=== PATIENT | male | born 1945 | race Caucasian/White ===

== ENCOUNTER 2016-03-25 07:24 | Outpatient (CLI) | payer MEDICARE, BC ==
[~2016-03-25] VITALS: Ht 172.7 cm; Wt 84.1 kg
--- NOTE | ~2016-03-25 | HEMODYNAMI ---
PATIENT:LUCRECIA CAPELLAN MEDICAL RECORD: [id number] : 41 LOCATION:D.CAT ADMISSION DATE: 03/25/16 Generatedon:03/25/201611:56 Patient name: LUCRECIA CAPELLAN Patient #: [id number] SSN: D OB: 1945 Date of study: 03/25/2016 Page: Of Hemodynamic Procedure Report Patient Data Patient Demographics Procedure consent was obtained First Name: LUCRECIA Gender: Male Last Name: MARILIA : 1945 Middle Initial: R Age: 70 year(s) Patient #: [id number] Race: Additional ID: [id number] Contact details Address: [address] [place] [address] State: [place] City: [place] Zip code: [address] Past Medical History Allergies Allergen Reaction Date Comments Reported Iodine 10/19/2015 Other allergy 03/25/2016 Iodine Admission Admission Data Admission Date: 03/25/2016 Admission Time: 7:24 Admit Source: Other Insurance Payor: Private health insurance, Medicare Height (in.): 68 BSA: 1.98 (m2) Height (cm.): 172.72 BMI: 28.13 (kg/m2) Weight (lbs.): 185 Weight (kg.): 83.91 Medications upon Admission Medications Dosage Times Administered Last Remarks per Delivery Day Date and Time Aspirin Yes 03/25/2016 (any) 0:00 Prasugrel Yes 03/25/2016 0:00 Lab Results Lab Result Date: 03/25/2016 Lab Result Time: 8:20 Biochemistry Name Units Result Min Max Creatinine mg/dl 1.7 --(----)-* 0.6 1.3 CBC Name Units Result Min Max Hematocrit % 46.1 --(-*--)-- 42 54 Procedure Procedure Types Cath Procedure Diagnostic Procedure [facility] w/Coronaries FFR/IVUS Intra-Coronary IVUS Initial PCI Procedure Coronary Stent Initial Procedure Description Procedure Date Procedure Date: 03/25/2016 Procedure Start Time: 11:30 Procedure End Time: 11:55 Procedure Staff Name Function Stone Beltre MD Performing Physician Bill Pearce RT Scrub Cal Fregoso RN Fish Housekeeper Kevin Steele RT Monitor Steve Parra RT Monitor Terrie Wallis RN Nurse Procedure Data Cath Procedure Fluoroscopy Diagnostic fluoroscopy Total fluoroscopy dose: 686 dose: 686 mGy mGy Contrast Material Contrast Material Type Amount (ml) Isovue 370 0 Isovue 300 139 Entry Location Entry Primary Successful Side Size Upsize Upsize Entry Closure Shearer ccessful Closure Location (Fr) 1 (Fr) 2 (Fr) Remarks Device Remarks Radial Right 6 Fr Mechanical artery Short Compression Estimated blood loss: 10 ml Diagnostic catheters Device Type Used For End Catheter Placement Terumo 5Fr [place] 110cm Procedure catheter Cordis Infinity 5Fr AR 2 Procedure MOD catheter Cordis Infinity 5Fr [place] 1 Procedure catheter Procedure Medications Medication Administration Route Dosage Oxygen NC 2 l/min Benadryl I.V. 50 mg Lidocaine 2% added to field 20 Heparin Flush Bag added to field 2 bags (1000units/500ml NS) 0.9% NaCl I.V. 100 ml/hr Versed I.V. 1 mg Fentanyl I.V. 50 mcg Radial Cocktail I.A. 1 syringe (Verapomil 2mg/Nitro 400mcg/Heparin 1500units) Versed I.V. 1 mg Fentanyl I.V. 50 mcg Heparin Bolus I.V. 5000 units Versed I.V. 1 mg Fentanyl I.V. 50 mcg Versed I.V. 1 mg Fentanyl I.V. 50 mcg Hemodynamics Rest BSA: 1.98 (m2) O2 Consumption: Estimated: 248.88 (ml/min) O2 Consumption indexed : Estimated:125.7 (ml/min/m) Heart Rate: 97 (bpm) Snapshots Pre Cath Intra NCS Post Cath Vital Signs Time Heart Resp SPO2 etCO2 CL0ypei NIBP (mmHg) Rhythm Pain Sedatio n Rate (ipm) (%) (mmHg) (mmHg) Status Level (bpm) 11:16:34 103 19 95 0 0 149/94(117) NSR 0 (11) 10(A) , No pain 11:20:48 105 17 98 0 0 165/101(136) NSR 0 (11) 10(A) , No pain 11:25:04 98 18 99 0 0 160/89(128) NSR 0 (11) 10(A) , No pain 11:29:18 94 18 98 0 0 150/86(106) NSR 0 (11) 10(A) , No pain 11:34:34 101 16 96 0 0 94/65(87) NSR 0 (11) 9(A) , No pain 11:39:23 94 17 95 0 0 107/64(83) NSR 0 (11) 9(A) , No pain 11:43:30 90 18 96 0 0 107/63(82) NSR 0 (11) 9(A) , No pain 11:47:36 88 18 95 0 0 113/67(94) NSR 0 (11) 9(A) , No pain 11:51:44 87 17 97 0 0 121/73(82) NSR 0 (11) 10(A) , No pain Medications Time Medication Route Dose Verified Delivered Reason Note s Effectiveness by by 11:18:50 Oxygen NC 2 l/min Stone Ritter used for Patt Beltre MD procedure 11:19:02 Benadryl I.V. 50 mg Stone Ritter used for Patt Beltre MD procedure 11:19:11 Lidocaine 2% added 20ml Stone Stone for local to vial Patt Beltre MD anesthetic field 11:19:19 Heparin Flush added 2 bags Stone Ritter used for Bag to Patt Beltre MD procedure (1000units/500ml field NS) 11:19:28 0.9% NaCl I.V. 100 Stone Ritter Per physician ml/hr Patt Beltre MD 11:30:06 Versed I.V. 1 mg Stone Ritter for sedation Patt Beltre MD 11:30:13 Fentanyl I.V. 50 mcg Stone Ritter for sedation Patt Beltre MD 11:32:24 Radial Cocktail I.A. 1 Stone Ritter for (Verapomil syringe Patt Beltre MD vasodilation 2mg/Nitro 400mcg/Heparin 1500units) 11:33:27 Versed I.V. 1 mg Stone Falcon for sedation Patt Wallis RN 11:33:30 Fentanyl I.V. 50 mcg Stone Falcon for sedation Tauth MD Wallis RN 11:36:04 Heparin Bolus I.V. 5000 Stone Falcon for VERI FIED units Patt Wallis RN anticoagulation WITH DR BELTRE 11:41:24 Versed I.V. 1 mg Stone Falcon for sedation Patt Wallis RN 11:41:28 Fentanyl I.V. 50 mcg Stone Padillaie for sedation Patt Wallis RN 11:47:05 Versed I.V. 1 mg Stone Padillaie for sedation Patt Wallis RN 11:47:09 Fentanyl I.V. 50 mcg Stone Falcon for sedation Patt Wallis RN Procedure Log Time Note 10:33:00 Informed consent obtained and on chart 10:33:25 Cal Fregoso RN sent for patient. Start room use. 10:33:26 Time tracking: Regular hours 10:33:29 Plan of Care:Hemodynamics will remain stable., Cardiac rhythm will remain stable., Comfort level will be maintained., Respiratory function will remain adequate., Patient/ family verbilizes understanding of procedure., Procedure tolerated without complication., Recovers from procedure without complications.. 10:33:33 Admit Source: Other 10:33:56 ACC Patient presents with Stable Angina CCS Anginal Class 3--Marked limitation of physical activity, angina occurs with ordinary activity.. 11:08:39 Patient received from Outpatients to CCL 2 Alert and oriented. Tansferred to table in Supine position. 11:08:40 Warm blankets applied, and orquidea hugger turned on for patient comfort. 11:09:21 Insurance Payor : Private health insurance, Medicare 11:11:58 Lab Result : Creatinine 1.7 mg/dl 11:11:58 Lab Result : Hematocrit 46.1 % 11:12:03 Diagnostic Cath Status : Elective 11:12:09 ECG and BP/O2 sat monitors applied to patient. 11:12:16 H&P Date Dictated: 03/20/2016 Within 30 days and on chart., H&P Addendum completed by physician on day of procedure. (MUST COMPLETE FOR ALL OUTPATIENTS). 11:12:18 Pre-procedure instructions explained to patient. 11:12:18 Pre-op teaching completed and patient verbalized understanding. 11:12:19 Family in waiting room. 11:12:20 Patient NPO since Midnight. 11:13:19 Patient allergic to Other allergyIodine 11:13:21 Is the patient allergic to Iodine/contrast media? Yes. 11:13:21 Was the patient premedicated? Yes 11:13:25 Is patient on blood thinner?Yes 11:13:28 ACC The patient was administered the following blood thiners within the last 24 hours: ACCEffient 11:13:32 Patient diabetic? No. 11:13:35 Previous problem with sedation/anesthesia? No ? 11:13:37 Snore? Yes 11:13:43 Sleep apnea? No 11:13:46 Deviated septum? No 11:13:47 Opens mouth fully? Yes 11:13:48 Sticks out tongue? Yes 11:13:51 Airway obstruction? No ? 11:13:55 Dentures? Yes in tight 11:13:59 Pre procedure: right dorsailis pedis pulse 1+ Palpable, but thready & weak; easily obliterated 11:14:01 Modified Mingo's test Ulnar < 7 seconds 11:14:03 Patient pain scale 0/10 ?. 11:14:16 IV patent on arrival in left forearm with 0.9% NaCl at [facility]. 11:14:23 Lab results completed and on chart. 11:14:26 Right Radial & Right Groin area was prepped with chlora-prep and draped in sterile fashion 11:14:27 Alarms reviewed by R. N. 11:14:28 Sharps counted by scrub and verified by R.N. 11:15:33 Vital chart was started 11:15:35 Baseline sample Acquired. 11:15:42 Rhythm: sinus rhythm 11:15:46 Full Disclosure recording started 11:16:56 Baseline sample Acquired. 11:18:50 Oxygen 2 l/min NC was given by Stone Beltre MD; used for procedure; 11:19:02 Benadryl 50 mg I.V. was given by Stone Beltre MD; used for procedure; 11:19:11 Lidocaine 2% 20ml vial added to field was given by Stone Beltre MD; for local anesthetic; 11:19:19 Heparin Flush Bag (1000units/500ml NS) 2 bags added to field was given by Stone Beltre MD; used for procedure; 11:19:26 If diabetic: On Metformin? No 11:19:28 0.9% NaCl 100 ml/hr I.V. was given by Stone Beltre MD; Per physician; ::38 Patient Height : 68 inches 11::56 Patient Weight : 185 lbs 11:: Physician arrived : --------ALL STOP TIME OUT------ : Final Timeout: patient, procedure, and site verified with staff and physician. All members of the team are in agreement. 11::29 Right Radial & Right Groin site verified by team. 11::35 Physical assessment completed. ASA score P 2 - A patient with mild systemic disease as per Stone Beltre MD. 11::40 Sedation plan: IV Moderate Sedation Versed, Fentanyl 11:30:06 Versed 1 mg I.V. was given by Stone Beltre MD; for sedation; 11:30:13 Fentanyl 50 mcg I.V. was given by Stone Beltre MD; for sedation; 11:30:20 Use device set Radial Dx 11:30:22 Acist Syringe opened to sterile field. 11:30:23 Cardinal Cath Pack opened to sterile field. 11:30:24 Bag Decanter opened to sterile field. 11:30:24 Terumo 6Fr Slender Glidesheath opened to sterile field. 11:30:25 St Scott 260cm J .035 wire opened to sterile field. 11:30:25 Acist Hand Control opened to sterile field. 11:30:26 Acist Manifold opened to sterile field. 11:30:28 Tegaderm 4 x 4 opened to sterile field. 11:30:38 Procedure started. 11::44 Local anesthetic to right radial artery with Lidocaine 2% by Stone Beltre MD.INITIAL ACCESS ONLY 11:32:24 Radial Cocktail (Verapomil 2mg/Nitro 400mcg/Heparin 1500units) 1 syringe I.A. was given by Stone Beltre MD; for vasodilation; 11::29 A 6 Fr Short sheath was inserted into the Right Radial artery 11:32:35 Zero performed for pressure channel P1 11:33:27 Versed 1 mg I.V. was given by Terrie Wallis RN; for sedation; 11:33:30 Fentanyl 50 mcg I.V. was given by Terrie Wallis RN; for sedation; 11:34:00 A Terumo 5Fr [place] 110cm catheter was advanced over the wire and used for Procedure. 11:34:14 LCA angiography performed. 11:35:33 Marquez Whisper J 300cm 0.014 guide wire opened to sterile field. 11:35:34 Appiny BasixCompak Inflation Kit opened to sterile field. 11:35:52 Catheter removed. 11:36:04 Heparin Bolus 5000 units I.V. was given by Terrie Wallis RN; for anticoagulation; VERIFIED WITH DR BELTRE 11:36:16 A Cordis Infinity 5Fr AR 2 MOD catheter was advanced over the wire and used for Procedure. 11:37:56 Catheter removed. 11:38:32 A Cordis Infinity 5Fr [place] 1 catheter was advanced over the wire and used for Procedure. 11:38:47 RCA angiography performed. 11:39:31 Catheter removed. 11:40:22 Cordis 6FR XBLAD 3.5 guide catheter opened to sterile field. 11:40:31 Proceeding to intervention. 11:40:47 PCI Cath status Elective 11:41:12 ACC PCI Site: Ramus has 95% stenosis. 11:41:15 ACC Pre-intervention DOM Flow is 3. 11:41:24 Versed 1 mg I.V. was given by Terrie Wallis RN; for sedation; 11:41:26 6 Fr XBLAD 3.5 guide catheter was inserted over the wire 11:41:28 Fentanyl 50 mcg I.V. was given by Terrie Wallis RN; for sedation; 11:41:35 WHISPER wire advanced. 11:42:43 Wire advanced across lesion. 11:43:27 PREPARING TO IVUS 11:43:42 FFR/IVUS 11:43:53 [place] Eag[place] IVUS Catheter opened to sterile field. 11:44:18 IVUS catheter advanced over wire. 11:45:45 IVUS pass to LMCA lesion performed. 11:45:55 IVUS catheter removed over wire. 11:47:05 Versed 1 mg I.V. was given by Terrie Wallis RN; for sedation; 11:47:09 Fentanyl 50 mcg I.V. was given by Terrie Wallis RN; for sedation; 11:48:31 Inflation Number: 1 A Medtronic Resolute 2.25 X 14 stent was prepped and advanced across the Ramus. The stent was deployed at 13 ABIEL for 0:10 (min:sec). 11:49:39 Terumo TR Band Standard opened to sterile field. 11:49:55 ACC Post-intervention DOM Flow is 3. 11:49:57 Stent catheter was removed intact over wire. 11:50:00 Wire removed. 11:50:01 Guide catheter removed. 11:52:11 Sheath removed intact; hemostasis achieved with Mechanical Compression to the Right Radial artery. 11:52:14 Procedure ended.(Physican Out) 11:52:37 Flurop Dose total: 686 11:52:37 Fluoroscopy dose: 686 mGy 11:52:43 Contrast amount:Isovue 370 0ml. 11:52:48 Contrast amount:Isovue 300 139ml. 11:52:50 Sharps counted by scrub and verified by R.N. 11:52:57 TR band inflated with 13cc of air. 11:53:00 Insertion/operative site no bleeding no hematoma. 11:53:07 Post right radial artery:stable 11:53:21 Post-procedure physical assessment completed. ASA score P 2 - A patient with mild systemic disease as per Stone Beltre MD. 11:53:27 Post procedure rhythm: unchanged. 11:53:31 Estimated blood loss: 10 ml 11:53:35 Post procedure instruction explained to patient.Patient verbalizes understanding. 11:53:36 Patient needs reinforcement of post procedure teaching. 11:54:06 Procedure type changed to Cath procedure, Diagnostic procedure, LHC, LHC w/Coronaries, FFR/IVUS, Intra-Coronary IVUS Initial, PCI procedure, Coronary Stent Initial 11:55:11 Procedure and supply charges have been captured, reviewed, submitted and are correct. 11:55:16 Vital chart was stopped 11:55:18 See physician's report for complete and final results. 11:55:23 Report given to Post Procedure Room. 11:55:28 Patient transfered to Post Procedure Room with Stretcher. 11:55:31 Procedure ended. 11:55:31 Full Disclosure recording stopped 11:55:53 ACC-PCI Only Patient was given prescriptions, or instructed by Stone Beltre MD to start/continue the following medications upon discharge: Aspirin, Plavix 11:55:55 End room use (Document Last) Intervention Summary Intervention Notes Time ActionType Lesion and Equipment Action# Pressure Duration Attributes Used 11:48:31 Place stent Ramus Medtronic 1 13 00:10 Resolute 2.25 X 14 stent Device Usage Item Name Manufacture Quantity Catalog Hospital Part Current Minimal Lot# / Serial# Number Charge Number Stock Stock Code Acist Acist 1 07555 [id number] 032311 444532 20 Syringe [employer] Inc Cardinal Cardinal [address] 448292 72506 024007 5 Cath Pack Health Bag Microtek 1 2002S 152980 45989 654374 5 Decanter [employer] Inc. Terumo 6Fr Terumo 1 [id number] 565782 617915 325548 [address] [facility] St Scott 1 091453 287121 161075 383806 30 260cm J .035 wire Acist Hand Acist 1 61993 225603 747582 419019 5 Touchotel Medical [employer] Inc Acist Acist 1 05701 444311 682981 467642 5 BodeTree Medical [employer] Inc Tegaderm 4 3M 1 1626W 670666 485219 747292 5 x 4 Terumo 5Fr Terumo 1 40-1473 864220 543352 960802 5 [place] 110cm catheter Marquez Marquez 1 [id number] 176967 714316 113467 5 Whisper J Vascular 300cm 0.014 guide wire Merit Merit 1 [id number] 359871 144470 200957 15 [facility] Medical Inflation Kit Cordis Cardinal 1 [id number] 240734 244898 663960 20 [facility] 5Fr AR 2 MOD catheter Cordis Cardinal 1 [id number] 087382 011788 419022 15 Infinity Health 5Fr [place] 1 catheter Cordis 6FR Cardinal 1 [id number] 459743 873098 003391 10 XBLAD 3.5 Health guide catheter [place] 1 [id number] 540300 395384 892470 8 [id number] [place] IVUS Catheter Medtronic Medtronic 1 [id number] 536053 940740 9 [id number] Resolute 2.25 X 14 stent Terumo TR Terumo 1 [id number] 338613 021410 762122 40 Band Standard Signature Audit [place] Stage Time Signature Unsigned Intra-Procedure 03/25/2016 Steve Parra 11:56:36 AM RT(R) (CV) Signatures Monitor : Kevin Steele RT Signature : Date : Time : Monitor : Steve Parra RT Signature : Date : Time : [address] [facility] [address]
[~2016-03-25 07:24] MED LIST: AMBIEN10 MG PO; ASPIRIN 81 MG E81 MG PO; BAYER CHEWABLE81 MG PO; BUDEPRION SR150 MG PO; EFFIENT10 MG PO; FLOMAX0.4 MG PO; HYDROCODON-ACE1 EAC7 PO; IMDUR30 MG PO; MOBIC7.5 MG PO; MUCOMYST 2800 MG/4 M PO; NORVASC5 MG PO; PLAVIX75 MG PO; PRAVACHOL80 MG PO; PREDNISONE20 MG PO; PRILOSEC20 MG PO; ZESTORETIC 20/11 TAB PO; ZYLOPRIM100 MG; ZYLOPRIM100 MG PO
[2016-03-25] MEDS ORDERED: EFFIENT10 MG PO (08:07)
[2016-03-25] MEDS ORDERED: CO Q-10100 MG (08:08)
[2016-03-25] MEDS ORDERED: ZYLOPRIM300 MG PO (08:11)
[2016-03-25] MEDS ORDERED: LIPITOR20 MG PO (08:12)
[2016-03-25 08:22] VITALS: BP 134/78; Ht 172.7 cm; Wt 84.1 kg
[2016-03-25 08:26] LABS: BASOPHILS 0 % (0.0-2.0); EOSINOPHILS 0 % (0-7); HEMATOCRIT 46.1 % (42.0-54.0); HEMOGLOBIN 15.4 g/dL (13.5-17.5); IMMATURE GRANULOCYTES 0.2 % (0-5); LYMPHOCYTES 7.1 % (15-50); MCHC 33.4 g/dL (31.0-37.0); MCV 98.9 fL (80.0-100.0); MEAN PLATELET VOLUME 10.1 fL (7.4-10.4); MONOCYTES 2.8 % (2-11); NEUTROPHILS 89.9 % (40-80); PLATELET COUNT 131 10x3/uL (130-400); RBC 4.66 10x6/uL (4.20-6.10); WBC 11.1 10x3/uL (4.8-10.8)
[2016-03-25 08:33] LABS: ANION GAP 15.6 mmol/L (8-16); CALCIUM 9.4 mg/dL (8.5-10.1); CARBON DIOXIDE 27.1 mmol/L (21.0-32.0); CREATININE - SERUM 1.7 mg/dL (0.6-1.3); POTASSIUM - SERUM 4.7 mmol/L (3.5-5.1)
--- NOTE | 2016-03-25 12:23 | NUR ---
HR 65 CHEST PAIN DENIED BP 117/67 TR BAND TO R/WRIST CDI NO BLEEDING NO HEMATOMA NOTED. INSTRUCTED PATIENT TO KEEP R/WRIST STRAIGHT NO BENDING OR FLEXING
--- NOTE | 2016-03-25 13:05 | NUR ---
RESTING QUIETLY WITH EYES CLOSED VSS TR BAND TO R/WRIST CDI NO BLEEDING NO HEMATOMA NOTED. WILL MONITOR
--- NOTE | 2016-03-25 13:26 | NUR ---
VSS WITH CHEST PAIN DENIED TR BAND TO R/WRIST CDI NO BLEEDING NO HEMATOMA NOTED FAMILY AT SIDE
--- NOTE | 2016-03-25 14:00 | NUR ---
1400 TR BAND TO R/WRIST CDI NO BLEEDING NO HEMATOMA NOTED CHEST PAIN IS DENIED FAMILY AT SIDE 1430 NO CHANGE IN ASSESSMENT CHEST PAIN DENIED VSS
--- NOTE | 2016-03-25 15:33 | NUR ---
4CC OF AIR LET OUT OF TR BAND. PT UP GETTING DRESSED.
--- NOTE | 2016-03-25 15:38 | NUR ---
LEFT ARM IV D/C'D WITH CATHETER INTACT. DISCHARGE INSTRUCTIONS GIVEN. PT AND FAMILY MEMBER VERBALIZED UNDERSTANDING.
--- NOTE | 2016-03-25 15:50 | NUR ---
LEFT VIA WHEELCHAIR WITH TO TRANSPORT HOME.
--- NOTE | 2016-04-01 14:16 | OP ---
PATIENT NAME: LUCRECIA CAPELLAN MEDICAL RECORD: [id number] :41 LOCATION:D.CAT ADMISSION DATE: SURGEON: ESTEVAN ALVARENGA MD DATE OF OPERATION: 03/25/2016 PROCEDURES: 1. PTCA, stent of ramus intermedius. 2. Left heart catheterization. 3. Selective coronary angiography. 4. Left ventriculogram. 5. Intravascular ultrasound of left main. PROCEDURE IN DETAIL: After informed consent was obtained and after detailed explanation of risks, benefits, as well as alternative therapies, the patient elected to proceed with angiogram and angioplasty. The right radial area was prepped and draped in normal sterile fashion. The right radial artery was cannulated via modified Seldinger technique with placement of 6-Polish sheath. All catheters were exchanged through this sheath. FINDINGS: The left ventriculogram was performed in standard 30-degree CHEW view, reveals good cardiac wall motion throughout all segments. Overall ejection fraction estimated 60%. SELECTIVE CORONARY ANGIOGRAPHY: 1. Left main has 69% stenosis confirmed by intravascular ultrasound. 2. The left anterior descending has mild irregularities; however, there is relatively large diagonal system that is 90% stenosis. 3. The ramus intermedius has a 95% stenosis; left circumflex elsewise has mild irregularities. 4. The right coronary has [id number]-dk-ldzvczyg irregularities, but no flow-limiting stenosis. PTCA STENT OF THE RAMUS INTERMEDIUS: The stent used was a 2.25 x 14 mm Resolute stent. Result was 0% residual stenosis. OVERALL IMPRESSION: Successful percutaneous transluminal coronary angioplasty stent of the ramus intermedius going from 95% initial stenosis. PLAN: PTCA stent of left main and LAD diagonal in the near future. TRANSINT:[id number] Voice Confirmation ID: [id number] DOCUMENT ID: [id number] ESTEVAN ALVARENGA MD at 1416 CC: [id number] DICTATION DATE: 03/25/16 1153 OVERHEAD WORKER: 03/25/16 1242 DEP CLI 03/25/16 [place] [id number] [place] [address]
== END 2016-03-25 16:46 | disposition home or self-care (01) ==
LOC: D.CATH 07:24
PROVIDERS: Internal Medicine Interventional Cardiology
DX: I25.119 Atherosclerotic heart disease of native coronary artery with unspecified angina pectoris (principal); E78.5 Hyperlipidemia, unspecified; I12.9 Hypertensive chronic kidney disease with stage 1 through stage 4 chronic kidney disease, or unspecified chronic kidney disease; N18.9 Chronic kidney disease, unspecified
CPT/HCPCS: 93458; 92978; C9600

== ENCOUNTER 2016-03-29 07:25 | Outpatient (CLI) | payer MEDICARE, BC ==
[~2016-03-29] VITALS: Ht 172.7 cm; Wt 84.1 kg
--- NOTE | ~2016-03-29 | HEMODYNAMI ---
PATIENT:LUCRECIA CAPELLAN MEDICAL RECORD: [id number] : 41 LOCATION:DMarilynCAT ADMISSION DATE: 03/29/16 Generatedon:03/29/20169:58 Patient name: LUCRECIA CAPELLAN Patient #: [id number] SSN: [id number] : 1945 Date of study: 03/29/2016 Page: Of Hemodynamic Procedure Report Patient Data Patient Demographics Procedure consent was obtained First Name: LUCRECIA Gender: Male Last Name: MARILIA : 1945 [facility] Initial: R Age: 70 year(s) Patient #: [id number] Race: SSN: [id number] Additional ID: [id number] Contact details [address]: [address] [place] [address] State: [place] City: [place] Zip code: [address] Past Medical History Allergies Allergen Reaction Date Comments Reported Iodine 10/19/2015 Other allergy 03/25/2016 Iodine Iodine Skin ->swelling 03/29/2016 Admission Admission Data Admission Date: 03/29/2016 Admission Time: 7:25 Arrival Date: 03/29/2016 Arrival Time: 9:30 Admit Source: Other Insurance Payor: Medicare Lab Results Lab Result Date: 03/29/2016 Lab Result Time: 0:00 CBC Name Units Result Min Max Hemoglobin g/dl 15.7 --(--*-)-- 13.5 17.5 Procedure Procedure Types Cath Procedure PCI Procedure Coronary Stent Initial x2 Procedure Description Procedure Date Procedure Date: 03/29/2016 Procedure Start Time: 9:41 Procedure End Time: 9:55 Procedure Staff Name Function Stone Beltre MD Performing Physician Ying Romo RT Scrub Liliana Chilel RN Nurse Marti Vogel RT Monitor Procedure Data Cath Procedure Fluoroscopy Diagnostic fluoroscopy Total fluoroscopy Time: 5.4 time: 5.4 min min Diagnostic fluoroscopy Total fluoroscopy dose: 635 dose: 635 mGy mGy Contrast Material Contrast Material Type Amount (ml) Isovue 300 62 Entry Location Entry Primary Successful Side Size Upsize Upsize Entry Closure Succes sful Closure Location (Fr) 1 (Fr) 2 (Fr) Remarks Device Remarks Femoral 6 Fr Vascade artery Short Closure System Estimated blood loss: 10 ml Procedure Complications No complications Procedure Medications Medication Administration Route Dosage Oxygen NC 2 l/min Heparin Flush Bag added to field 2 bags (1000units/500ml NS) Lidocaine 2% added to field 20 Versed I.V. 1 mg Fentanyl I.V. 50 mcg Heparin Bolus I.V. 4000 units Versed I.V. 1 mg Fentanyl I.V. 50 mcg Versed I.V. 1 mg Fentanyl I.V. 50 mcg Fentanyl I.V. 50 mcg Versed I.V. 1 mg Hemodynamics Rest HGB: 15.7 (g/dl) Heart Rate: 74 (bpm) Snapshots Pre Cath Intra NCS Post Cath Vital Signs Time Heart Resp SPO2 NIBP (mmHg) Rhythm Pain Sedation Rate (ipm) (%) Status Level (bpm) 9:20:43 79 18 100 158/95(129) NSR 0 (11) 10(A) , No pain 9:24:59 92 18 99 142/95(121) NSR 0 (11) 10(A) , No pain 9:29:15 84 13 98 146/83(120) NSR 0 (11) 10(A) , No pain 9:33:27 86 16 94 131/82(101) NSR 0 (11) 10(A) , No pain 9:37:39 83 16 95 132/79(107) NSR 0 (11) 10(A) , No pain 9:41:48 78 16 95 117/75(96) NSR 0 (11) 10(A) , No pain 9:45:56 81 17 95 115/73(111) NSR 0 (11) 10(A) , No pain 9:50:04 84 16 95 118/81(115) NSR 0 (11) 10(A) , No pain 9:54:12 89 16 95 113/81(109) NSR 0 (11) 10(A) , No pain Medications Time Medication Route Dose Verified Delivered Reason Notes Effectiveness by by 9:22:23 Oxygen NC 2 [place] Per physician l/min Patt Chilel RN 9:22:29 Heparin Flush added 2 Sotne Ritter used for Bag to bags Patt Beltre MD procedure (1000units/500ml field NS) 9:22:37 Lidocaine 2% added 20ml Stone Ritter used for to vial Patt Beltre MD procedure field 9:39:48 Versed I.V. 1 mg Stone Liliana for sedation Patt Chilel RN 9:39:53 Fentanyl I.V. 50 Stone Liilana for sedation mcg Patt Chilel RN 9:41:27 Versed I.V. 1 mg Stone Liliana for sedation Patt Chilel RN 9:41:33 Fentanyl I.V. 50 Stone Liliana for sedation mcg Patt Chilel RN 9:43:28 Heparin Bolus I.V. 4000 Stone Liliana for dose units Patt Chilel RN anticoagulation verified wt dr beltre 9:43:38 Versed I.V. 1 mg Stone Liliana for sedation Patt Chilel RN 9:43:43 Fentanyl I.V. 50 Stone Liliana for sedation mcg Patt Chilel RN 9:45:06 Fentanyl I.V. 50 Stone Liliana for sedation mcg Patt Chilel RN 9:45:07 Versed I.V. 1 mg Stone Liliana for sedation Patt Chilel RN Procedure Log Time Note 8:40:28 Liliana Chilel RN sent for patient. Start room use. 8:56:38 Informed consent obtained and on chart 8:56:46 Admit Source: Other 8:56:52 Arrival Date: 03/29/2016 9:30:00 AM 8:56:58 Insurance Payor : Medicare 8:57:08 Diagnostic Cath Status : Elective 9:15:22 Time tracking: Regular hours 9:15:27 Plan of Care:Hemodynamics will remain stable., Cardiac rhythm will remain stable., Comfort level will be maintained., Respiratory function will remain adequate., Patient/ family verbilizes understanding of procedure., Procedure tolerated without complication., Recovers from procedure without complications.. 9:15:36 Patient received from Outpatients to CCL 1 Alert and oriented. Tansferred to table in Supine position. 9:15:38 Warm blankets applied, and orquidea hugger turned on for patient comfort. 9:15:38 Correct patient and procedure confirmed by team. 9:19:31 Vital chart was started 9:19:48 ECG and BP/O2 sat monitors applied to patient. 9:19:50 Baseline sample Acquired. 9:19:55 Rhythm: sinus rhythm 9:19:56 Full Disclosure recording started 9:20:39 H&P Date Dictated: 03/20/2016 Within 30 days and on chart., H&P Addendum completed by physician on day of procedure. (MUST COMPLETE FOR ALL OUTPATIENTS). 9:20:42 Pre-procedure instructions explained to patient. 9:20:47 Family in waiting room. 9:20:49 Patient NPO since Midnight. 9:21:12 Patient allergic to Iodine 9:21:16 Is the patient allergic to Iodine/contrast media? Yes. 9:21:17 Was the patient premedicated? Yes 9:21:20 Is patient on blood thinner?Yes 9:21:24 ACC The patient was administered the following blood thiners within the last 24 hours: ACCAspirin, ACCEffient 9:21:27 Patient diabetic? No. 9:21:35 Snore? Yes 9:21:37 Sleep apnea? No 9:21:48 Dentures? Yes tight 9:22:00 IV patent on arrival in left hand with 0.9% NaCl at O. 9:22:23 Oxygen 2 l/min NC was given by Liliana Chilel RN; Per physician; 9:22:29 Heparin Flush Bag (1000units/500ml NS) 2 bags added to field was given by Stone Beltre MD; used for procedure; 9:22:37 Lidocaine 2% 20ml vial added to field was given by Stone Beltre MD; used for procedure; 9:23:09 Lab Result : Hemoglobin 15.7 g/dl 9:25:42 Lab results completed and on chart. 9:25:45 Right groin area was prepped with chlora-prep and draped in sterile fashion 9:25:46 Alarms reviewed by David Schmitz. 9:27:49 Use device set Femoral PCI 9:27:50 Acist Syringe opened to sterile field. 9:27:50 Acist Hand Control opened to sterile field. 9:27:51 Bag Decanter opened to sterile field. 9:27:52 Cardinal Cath Pack opened to sterile field. 9:27:52 Terumo 6Fr [place] Sheath opened to sterile field. 9:27:54 St Scott 260cm J .035 wire opened to sterile field. 9:27:55 Merit BasixCompak Inflation Kit opened to sterile field. 9:27:56 Acist Manifold opened to sterile field. 9:27:56 Tegaderm 4 x 4 opened to sterile field. 9:28:07 Marquez Whisper J 300cm 0.014 guide wire opened to sterile field. 9:30:18 Physician paged 9:30:58 Zero performed for pressure channel P1 9:39:07 Physician arrived 9:39:17 --------ALL STOP TIME OUT------ 9:39:18 Final Timeout: patient, procedure, and site verified with staff and physician. All members of the team are in agreement. 9:39:21 Right groin site verified by team. 9:39:24 Physical assessment completed. ASA score P 2 - A patient with mild systemic disease as per Stone Beltre MD. 9:39:28 Sedation plan: IV Moderate Sedation Versed, Fentanyl 9:39:48 Versed 1 mg I.V. was given by Liliana Chilel RN; for sedation; 9:39:53 Fentanyl 50 mcg I.V. was given by Liliana Chilel RN; for sedation; 9:41:17 Zero performed for pressure channel P1 9:41:26 Zero performed for pressure channel P1 9:41:27 Versed 1 mg I.V. was given by Liliana Chilel RN; for sedation; 9:41:33 Fentanyl 50 mcg I.V. was given by Liliana Chilel RN; for sedation; 9:41:35 Zero performed for pressure channel P1 9:41:49 Procedure started. 9:41:52 Local anesthetic to right femoral artery with Lidocaine 2% by Stone Beltre MD.INITIAL ACCESS ONLY 9:42:03 A 6 Fr Short sheath was inserted into the Femoral artery 9:43:28 Heparin Bolus 4000 units I.V. was given by Liliana Chilel RN; for anticoagulation; dose verified wtih dr beltre 9:43:38 Versed 1 mg I.V. was given by Liliana Chilel RN; for sedation; 9:43:43 Fentanyl 50 mcg I.V. was given by Liliana Chilel RN; for sedation; 9:43:46 Cordis 6FR XBLAD 3.5 guide catheter opened to sterile field. 9:44:05 6 Fr XBLAD 3.5 guide catheter was inserted over the wire 9:44:19 Whisper wire advanced. 9:44:39 ACC PCI Site: Diag1 has 95% stenosis. 9:44:56 ACC PCI Site: LMCA has 80-90% stenosis. 9:45:06 Fentanyl 50 mcg I.V. was given by Liliana Chilel RN; for sedation; 9:45:07 Versed 1 mg I.V. was given by Liliana Chilel RN; for sedation; 9:45:07 Wire advanced across lesion. 9:45:50 Inflation number: 1 A [employer] Hardy 2.0 X 15 balloon was prepped and advanced across the 1st Diag, then inflated to 11 ABIEL for 0:10 (min:sec). 9:46:41 Balloon removed over the wire. 9:47:58 Inflation Number: 2 A Medtronic Resolute 2.25 X 18 Stent was prepped and advanced across the 1st Diag. The stent was deployed at 11 ABIEL for 0:10 (min:sec). 9:48:17 Inflation number: 3 The stent balloon was then re-inflated across the 1st Diag to 11 ABIEL for 0:10 (min:sec). 9:48:41 Inflation number: 4 The stent balloon was then re-inflated across the 1st Diag to 11 ABIEL for 0:30 (min:sec). 9:51:29 Inflation Number: 1 A Medtronic Resolute 4.0 X 9 stent was prepped and advanced across the LMCA. The stent was deployed at 17 ABIEL for 0:10 (min:sec). 9:52:17 Vascade 6/7 Fr Closure Device opened to sterile field. 9:53:35 Sheath removed intact; hemostasis achieved with Vascade Closure System to the Femoral artery. 9:53:38 Procedure ended.(Physican Out) 9:53:53 Fluoroscopy time 05.40 minutes. 9:53:57 Fluoroscopy dose: 635 mGy 9:53:57 Flurop Dose total: 635 9:54:01 Contrast amount:Isovue 300 62ml. 9:54:05 Sharps counted by scrub and verified by R.N. 9:54:14 Insertion/operative site no bleeding no hematoma. 9:54:21 Post-op/insertion site Right Femoral artery dressed using a 4 x 4 and Tegaderm. 9:54:23 Post Procedure Pulses reassessed and unchanged 9:54:30 Post-procedure physical assessment completed. ASA score P 2 - A patient with mild systemic disease as per Stone Beltre MD. 9:54:33 Post procedure rhythm: unchanged. 9:54:38 Estimated blood loss: 10 ml 9:54:39 Post procedure instruction explained to patient.Patient verbalizes understanding. 9:54:55 Procedure type changed to Cath procedure, PCI procedure, Coronary Stent Initial x2 9:54:56 Procedure and supply charges have been captured, reviewed, submitted and are correct. 9:55:28 Procedure Complication : No complications 9:55:30 Vital chart was stopped 9:55:31 See physician's report for complete and final results. 9:55:38 Report given to Post Procedure Room. 9:55:46 Patient transfered to Post Procedure Room with Stretcher. 9:55:49 Procedure ended. 9:55:49 Full Disclosure recording stopped Intervention Summary Intervention Notes Time ActionType Lesion and Equipment Action# Pressure Duration Attributes Used 9:45:50 Inflate 1st Diag Hoagland 1 11 00:10 balloon Sci Hardy 2.0 X 15 balloon 9:47:58 Place stent 1st Diag Medtronic 2 11 00:10 Resolute 2.25 X 18 Stent 9:48:17 Reinflate 1st Diag Medtronic 3 11 00:10 stent Resolute balloon 2.25 X 18 Stent 9:48:41 Reinflate 1st Diag Medtronic 4 11 00:30 stent Resolute balloon 2.25 X 18 Stent 9:51:29 Place stent LMCA Medtronic 1 17 00:10 Resolute 4.0 X 9 stent Device Usage Item Name Manufacture Quantity Catalog Number Hospital Part Current Mini mal Lot# / Charge Number Stock Stock Serial# Code Acist Acist 1 18614 [id number] 226378 [id number] 20 Syringe Medical Systems Inc Acist Hand Acist 1 19572 362493 218246 451260 5 Ze-gen Inc Bag Microtek 1 2002S 505195 87046 071729 5 Night Up Inc. Cardinal Cardinal 1 [id number] 580268 14509 553235 5 Cath Pack Health Terumo 6Fr Terumo 1 [id number] 671147 990695 579136 [address] [facility] Scott 1 148649 121358 448294 291211 30 260cm J .035 wire Merit Merit 1 [id number] 074544 159657 495685 15 EverPowerixQuadrille Ingénierie Medical Inflation Kit Acist Acist 1 39212 083670 893048 003993 5 Kaeuferportal Systems Inc Tegaderm 4 3M 1 1626W 701206 217476 407319 5 x 4 Marquez Marquez 1 [id number] 516851 582741 845853 5 Whisper J Vascular 300cm 0.014 guide wire Cordis 6FR Cardinal 1 [id number] 127978 148691 394164 10 XBLAD 3.5 Health guide catheter Hoagland Sci Hoagland 1 [id number] 856117 675228 139112 1 [id number] Vidder Scientific 2.0 X 15 balloon Medtronic Medtronic 1 [id number] 354473 658470 7 [id number] Resolute 2.25 X 18 Stent Medtronic Medtronic 1 [id number] 043480 496745 0 [id number] Resolute 4.0 X 9 stent Vascade 08/07 Cardiva 1 [id number] 576220 892698 601466 5 Fr Closure Medical, Device Inc. Signature Audit [place] Stage Time Signature Unsigned Intra-Procedure 03/29/2016 Marti Vogel 9:58:30 AM RT(R) Signatures Monitor : Marti Vogel Signature : RT Date : Time : [place] [id number] [place]END[place] SCHULTZ, ANA LILIA [address]
[~2016-03-29 07:25] MED LIST changes: +CO Q-10100 MG; +LIPITOR20 MG PO; +ZYLOPRIM300 MG PO
[2016-03-29 08:47] VITALS: BP 147/97; Ht 172.7 cm; Wt 84.1 kg
--- NOTE | 2016-03-29 08:57 | NUR ---
0832 IV STARTED LEFT HAND 20 GAUGE GOOD BLOOD RETURN N/S AT KVO NO REDNESS OR SWELLING. BLOOD DRAWN.
[2016-03-29 09:04] LABS: BASOPHILS 0 % (0.0-2.0); EOSINOPHILS 0 % (0-7); HEMATOCRIT 46.7 % (42.0-54.0); HEMOGLOBIN 15.7 g/dL (13.5-17.5); IMMATURE GRANULOCYTES 0.2 % (0-5); LYMPHOCYTES 8.5 % (15-50); MCH 33.3 pg (26.0-34.0); MCHC 33.6 g/dL (31.0-37.0); MCV 98.9 fL (80.0-100.0); MEAN PLATELET VOLUME 10.8 fL (7.4-10.4); MONOCYTES 2.2 % (2-11); NEUTROPHILS 89.1 % (40-80); PLATELET COUNT 140 10x3/uL (130-400); RBC 4.72 10x6/uL (4.20-6.10); RDW 12.8 % (11.5-14.5); WBC 10.1 10x3/uL (4.8-10.8)
[2016-03-29 09:21] LABS: ANION GAP 12.4 mmol/L (8-16); CALCIUM 9.6 mg/dL (8.5-10.1); CARBON DIOXIDE 29.7 mmol/L (21.0-32.0); CREATININE - SERUM 1.5 mg/dL (0.6-1.3); POTASSIUM - SERUM 5.1 mmol/L (3.5-5.1)
--- NOTE | 2016-03-29 10:15 | NUR ---
HR 79 CHEST PAIN DENIED BP 134/80. 6 FR VASCADE R/GROIN CDI NO BLEEDING NO HEMATOMA NOTED EDUCATED PATIENT TO KEEP HEAD FLAT ON PILLOW WITH RLE STRAIGHT
--- NOTE | 2016-03-29 10:45 | NUR ---
1045 NO DISTRESS NOTED PATIENT SLEEPING QUIETLY WITH EYES CLOSED VSS WITH 6 FR VASCADE R/GROIN CDI NO BLEEDING NO HEMATOMA NOTED WILL MONITOR
--- NOTE | 2016-03-29 12:28 | NUR ---
CHEST PAIN DENIED WITH 6 FR VASCADE R/GROIN CDI NO BLEEDING NO HEMATOMA NOTED. FAMILY AT SIDE WILL MONITOR
--- NOTE | 2016-03-29 13:48 | NUR ---
PATIENT UP TO VOID WITH NO COMPLAINTS 6 FR VASCADE R/GROIN CDI NO BLEEDING NO HEMATOMA NOTED. PIV REMOVED FROM LEFT HAND WITH DRESSING APPLIED. 1526 VERBAL AND WRITTEN DISCHARGE GONE OVER WITH PATIENT AND FAMILY LEFT VIA WC TO TAL FOR DISCHARGE HOME
--- NOTE | 2016-04-01 14:16 | HP ---
PATIENT: LUCRECIA CAPELLAN MEDICAL RECORD: [id number] ACCOUNT: [id number] LOCATION:SHAZIA : 41 ADMISSION DATE: 03/29/16 HISTORY AND PHYSICAL EXAMINATION ADMISSION DIAGNOSES: 1. Angina. 2. Coronary artery disease. 3. Recent percutaneous transluminal coronary angioplasty stent of ramus intermedius with concomitant disease left anterior descending diagonal. 4. Hypertension. 5. Hyperlipidemia. HISTORY OF PRESENT ILLNESS: Mr. Capellan presents with anginal symptomatology, was found to have significant disease of ramus intermedius as well as left main and LAD, underwent successful PTCA stent of the ramus and now brought back for PTCA stent of the left main and LAD. PHYSICAL EXAMINATION: GENERAL APPEARANCE: Well-nourished, well-developed, appears stated age. Level of distress, comfortable. PSYCHIATRIC: Mental status, alert, normal affect. Orientation, oriented to time, place and person. EYES: Lids and conjunctiva, noninjected. No discharge, no pallor. ENT: Lips, teeth, gums, normal dentition. Oropharynx, no cyanosis, no pallor. NECK: Carotid arteries, bilateral normal upstroke, no bruits, no thrills. JUGULAR VEINS: No jugular venous pressure or distention. CERVICAL LYMPH NODES: Nontender, nonenlarged. THYROID: Not enlarged. Nontender. No nodules. LUNGS: Respiratory effort, unlabored. CHEST: Normal curvature. No thoracic deformity. No chest wall tenderness. Percussion, resonant. Auscultation, clear. No wheezes, no rales, no rhonchi. CARDIOVASCULAR: Precordial exam, nondisplaced. No heaves or pericardial thrills. Rate and rhythm, regular. Heart sounds, normal S1, normal S2. No S3, no gallop, no rub. Systolic murmur, not heard. Diastolic murmur, not heard. EXTREMITIES: No cyanosis, no edema. Peripheral pulses, full and equal in all extremities, except as noted. No bruits appreciated. ABDOMEN: Soft, nondistended. Normal aorta. No bruit. Nontender. No masses. Liver, nontender, no hepatomegaly. Spleen, nontender, no splenomegaly. MUSCULOSKELETAL: No joint tenderness. No joint swelling. No erythema. NEUROLOGICAL: Normal gait, normal strength, normal tone. SKIN: Warm and dry. REVIEW OF SYSTEMS: The patient reports easy bruising but reports no swollen glands. The patient reports no fever, no night sweats, no significant weight gain, no significant weight loss. No significant exercise tolerance. The patient reports no dry eyes, no irritation, no vision change. Patient reports no difficulty hearing and no ear pain. Patient reports no frequent nose bleeds or nose and sinus problems. Patient reports on arm pain on exertion. No shortness of breath while lying down. No history of heart murmur. Patient reports no cough, no wheezing or coughing up blood. Patient reports no abdominal pain, no vomiting. Normal appetite. No diarrhea and not vomiting blood. No nausea and no constipation. Patient reports no incontinence. No difficulty urinating. No hematuria. No increased frequency. Patient reports no muscle aches. No weakness, no arthralgias, no back pain. No swelling of the HISTORY AND PHYSICAL [id number] LUCRECIA CAPELLAN R extremities. Patient reports no abnormal mole, no jaundice, no rashes. Reports no loss of consciousness. No weakness and no numbness. No seizures, dizziness, or headaches. The patient reports no depression, no sleep disturbance, feeling safe in a relationship and no alcohol abuse. Patient reports on fatigue. Reports no runny nose or sinus pressure. No itching, no hives, and no frequent sneezing. OVERALL IMPRESSION: Anginal symptomatology with significant disease of the left anterior descending. We will proceed with percutaneous transluminal coronary angioplasty stent of the left anterior descending diagonal and left main. TRANSINT:[id number] Voice Confirmation ID: [id number] DOCUMENT ID: [id number] ESTEVAN ALVARENGA MD at 1416 CC: [id number] DICTATION DATE: 03/29/16 0851 ELECTRONIC INDUCTION HARDENER: 03/29/16 1003 DEP CLI 03/29/16 [facility] [address] [place] [address]
--- NOTE | 2016-04-01 14:16 | OP ---
PATIENT NAME: LUCRECIA CAPELLAN MEDICAL RECORD: [id number] :41 LOCATION:D.CAT ADMISSION DATE: SURGEON: ESTEVAN ALVARENGA MD DATE OF OPERATION: 03/29/2016 PROCEDURES: 1. PTCA stent left main. 2. PTCA stent LAD diagonal. 3. Selective coronary angiography. INDICATION: Angina and coronary artery disease. PROCEDURE IN DETAIL: After informed consent was obtained and after a detailed explanation of the risks, benefits, as well as alternative therapies, the patient elected to proceed with angiogram and angioplasty. The right femoral area was prepped and draped in normal sterile fashion. The right femoral artery was cannulated via modified Seldinger technique with the placement of 6-Burmese sheath. All catheters exchanged through this sheath. FINDINGS: 1. The left main had 70% stenosis by intravascular ultrasound. Last cardiac catheterization in the LAD diagonal has 95% stenosis. Diagonal was addressed with a 2.25 x 18 mm Resolute and the left main with a 4.0 x 9 mm Resolute. Result was 0% residual throughout. OVERALL IMPRESSION: Successful percutaneous transluminal coronary angioplasty stent of the left main and left anterior descending going from 70 and 95% initial stenosis to 0% residual. TRANSINT:[id number] Voice Confirmation ID: [id number] DOCUMENT ID: [id number] ESTEVAN ALVARENGA MD at 1416 CC: [id number] DICTATION DATE: 03/29/16 0954 REPLENISHMENT BUYER: 03/29/16 1945 DEP CLI 03/29/16 [place] [id number] [place] [id number]
== END 2016-03-29 13:50 | disposition home or self-care (01) ==
LOC: D.CATH 07:25
PROVIDERS: Internal Medicine Interventional Cardiology
DX: I25.110 Atherosclerotic heart disease of native coronary artery with unstable angina pectoris (principal); I10 Essential (primary) hypertension; E78.5 Hyperlipidemia, unspecified
CPT/HCPCS: C9600 ×2

== ENCOUNTER → 2017-05-19 08:48 | Outpatient (CLI) | payer MEDICARE, BC ==
[~2017-05-19] VITALS: Ht 172.7 cm; Wt 86.8 kg
--- NOTE | ~2017-05-19 | OP ---
PATIENT NAME: LUCRECIA CAPELLAN MEDICAL RECORD: [id number] :41 LOCATION:D.CAT ADMISSION DATE: SURGEON: ESTEVAN ALVARENGA MD DATE OF OPERATION: 05/19/2017 PROCEDURES: 1. PTCA stent LAD diagonal. 2. PTCA ramus intermedius. 3. Left heart catheterization. 4. Selective coronary angiography. 5. Left ventriculogram. INDICATION: Angina and coronary artery disease. PROCEDURE IN DETAIL: After informed consent was obtained and after a detailed explanation of risks, benefits, as well as alternative therapies, the patient elected to proceed with angiogram and angioplasty. The right radial area was prepped and draped in normal sterile fashion. The right radial artery was cannulated via modified Seldinger technique with placement of 6-Tamazight sheath. All catheters exchanged through this sheath. FINDINGS: Left ventriculogram was performed in standard 30-degree CHEW view, reveals good cardiac wall motion throughout all segments. Overall ejection fraction estimated at 60%. SELECTIVE CORONARY ANGIOGRAPHY: 1. Left main is with no significant angiographic disease. 2. Left anterior descending has previously placed stent in the diagonal prior, just proximal to the stent there is an 80% stenosis. This is relatively a large diagonal system. 3. Left circumflex has a ramus intermedius with a previously placed stent with 70% in-stent restenosis proximally, otherwise the circumflex has only mild irregularities, but no flow-limiting stenosis. 4. Right coronary has mild irregularities, but no flow-limiting stenosis. PTCA STENT OF THE LAD DIAGONAL: The stent used was a 2.25 x 8 mm Rian. This caused plaque shift into the LAD. The LAD was ballooned with the stent balloon. Result was 0% residual throughout. PTCA OF THE RAMUS INTERMEDIUS: A stent balloon was used for the ramus intermedius, one inflation at 15 atmospheres. Result was 0% residual stenosis. OVERALL IMPRESSION: Successful percutaneous transluminal coronary angioplasty stent of the left anterior descending diagonal going from 80% initial stenosis to 0% residual. TRANSINT:[id number] Voice Confirmation ID: [id number] DOCUMENT ID: [id number] OPERATIVE REPORT [id number] FREDY CAPELLANFRED Edvin ESTEVAN ALVARENGA MD at 1140 CC: [id number] DICTATION DATE: 05/19/17 5660 ONLINE CONTENT DEVELOPER: 05/19/17 1546 DEP CLI 05/19/17 [facility] [address] [place] [address]
--- NOTE | ~2017-05-19 | HEMODYNAMI ---
PATIENT:LUCRECIA CAPELLAN MEDICAL RECORD: [id number] : 41 LOCATION:[facility] ADMISSION DATE: 05/19/17 Generatedon:05/19/201714:51 Patient name: LUCRECIA CAPELLAN Patient #: [id number] SSN: [id number] : 1945 Date of study: 05/19/2017 Page: Of Hemodynamic Procedure Report Patient Data Patient Demographics Procedure consent was obtained First Name: LUCRECIA Gender: Male Last Name: MARILIA : 1945 [facility] Initial: R Age: 71 year(s) Patient #: [id number] Race: SSN: [id number] Additional ID: [id number] Contact details [address]: [address] [place] [address] State: [place] City: [place] Zip code: [address] Past Medical History Allergies Allergen Reaction Date Comments Reported Iodine 10/19/2015 Other allergy 03/25/2016 Iodine Iodine Skin ->swelling 03/29/2016 Other allergy 05/19/2017 iodine Admission Admission Data Admission Date: 05/19/2017 Admission Time: 8:48 Lab Results Lab Result Date: 05/19/2017 Lab Result Time: 9:59 Biochemistry Name Units Result Min Max BUN mg/dl 17 --(---*)-- 7 18 Creatinine mg/dl 1.5 --(----)-* 0.6 1.3 CBC Name Units Result Min Max Hematocrit % 43.8 --(*---)-- 42 54 Hemoglobin g/dl 15.3 --(-*--)-- 13.5 17.5 Procedure Procedure Types Cath Procedure Diagnostic Procedure [facility] w/Coronaries Sedation Charges Moderate Sedation up to 15 minutes PCI Procedure Coronary Stent Coronary Stent Initial PTCA PTCA Additional x2 Procedure Description Procedure Date Procedure Date: 05/19/2017 Procedure Start Time: 14:26 Procedure End Time: 14:48 Procedure Staff Name Function Stone Beltre MD Performing Physician Terrie Wallis RN Nurse Bill Pearce RT Monitor Kevin Steele RT Scrub Procedure Data Cath Procedure Fluoroscopy Diagnostic fluoroscopy Total fluoroscopy Time: 8.3 time: 8.3 min min Diagnostic fluoroscopy Total fluoroscopy dose: dose: 377.91 mGy 377.91 mGy Contrast Material Contrast Material Type Amount (ml) Isovue 300 152 Entry Location Entry Primary Successful Side Size Upsize Upsize Entry Closure Shearer ccessful Closure Location (Fr) 1 (Fr) 2 (Fr) Remarks Device Remarks Radial Right 6 Fr Mechanical artery Short Compression Estimated blood loss: 10 ml Diagnostic catheters Device Type Used For End Catheter Placement DIAGNOSTIC [place] 110cm 5 Procedure Fr catheter ([id number]) Procedure Complications No complications Procedure Medications Medication Administration Route Dosage Oxygen NC 2 l/min Lidocaine 2% added to field 20 Heparin Flush Bag added to field 2 bags (1000units/500ml NS) 0.9% NaCl I.V. 100 ml/hr Versed I.V. 2 mg Fentanyl I.V. 50 mcg Versed I.V. 1 mg Fentanyl I.V. 50 mcg Heparin Bolus I.V. 4000 units Versed I.V. 2 mg Fentanyl I.V. 50 mcg Versed I.V. 1 mg Fentanyl I.V. 50 mcg Radial Cocktail I.A. 1 syringe (Verapomil 2mg/Nitro 400mcg/Heparin 1500units) Hemodynamics Rest HGB: 15.3 (g/dl) Heart Rate: 70 (bpm) Pressure Samples Time Site Value (mmHg) Purpose Heart Use Rate(bpm) 14:28 LV 31/0,-6 Snapshot 94 14:29 AO 137/90(105) Snapshot 98 Snapshots Pre Cath Intra NCS Post Cath Vital Signs Time Heart Resp SPO2 etCO2 NIBP (mmHg) Rhythm Pain Sedation Rate (ipm) (%) (mmHg) Status Level (bpm) 14:09:28 86 17 94 0 Measuring NSR 0 (11) 10(A) , No pain 14:10:50 89 24 95 0 162/78(0) NSR 0 (11) 10(A) , No pain 14:15:49 89 18 96 0 Measuring NSR 0 (11) 10(A) , No pain 14:22:10 86 15 94 37.6 154/86(0) NSR 0 (11) 10(A) , No pain 14:28:17 91 15 97 37.6 150/90(121) NSR 0 (11) 10(A) , No pain 14:32:39 89 18 94 42 131/78(111) NSR 0 (11) 10(A) , No pain 14:36:55 89 16 97 41.2 151/89(135) NSR 0 (11) 10(A) , No pain 14:41:13 87 16 95 43.5 130/88(125) NSR 0 (11) 10(A) , No pain 14:45:29 87 14 96 18.4 146/90(121) NSR 0 (11) 10(A) , No pain Medications Time Medication Route Dose Verified Delivered Reason Note s Effectiveness by by 14:23:25 Oxygen NC 2 l/min Stone Buffie used for Patt Wallis RN procedure 14:23:33 Lidocaine 2% added 20ml Stone Stone for local to vial Patt Beltre MD anesthetic field 14:23:39 Heparin Flush added 2 bags Stonemichael Ritter used for Bag to Patt Beltre MD procedure (1000units/500ml field NS) 14:23:51 0.9% NaCl I.V. 100 Stone Buffie used for ml/hr Patt Wallis RN procedure 14:25:06 Fentanyl I.V. 50 mcg Stone Buffie for sedation Patt Wallis RN 14:25:57 Versed I.V. 2 mg Stone Buffie for sedation Patt Wallis RN 14:28:10 Radial Cocktail I.A. 1 Stone Buffie for (Verapomil syringe Patt Wallis RN vasodilation 2mg/Nitro 400mcg/Heparin 1500units) 14:28:52 Versed I.V. 1 mg Stone Buffie for sedation Patt Wallis RN 14:28:56 Fentanyl I.V. 50 mcg Stone Buffie for sedation Patt Wallis RN 14:31:54 Heparin Bolus I.V. 4000 Stone Buffie for veri fied units Patt Wallis RN anticoagulation with dr beltre 14:33:08 Versed I.V. 2 mg Stone Buffie for sedation Patt Wallis RN 14:33:12 Fentanyl I.V. 50 mcg Stone Buffie for sedation Patt Wallis RN 14:40:24 Versed I.V. 1 mg Stone Buffie for sedation Patt Wallis RN 14:40:39 Fentanyl I.V. 50 mcg Stone Falcon for sedation Patt Wallis RN Procedure Log Time Note 13:42:35 Kevin Steele RT(R) sent for patient. Start room use. 13:42:36 Time tracking: Regular hours 13:42:40 Plan of Care:Hemodynamics will remain stable., Cardiac rhythm will remain stable., Comfort level will be maintained., Respiratory function will remain adequate., Patient/ family verbilizes understanding of procedure., Procedure tolerated without complication., Recovers from procedure without complications.. 13:48:40 Diagnostic Cath status Elective 13:56:24 Patient received from Pre/Post Procedure Room to CCL 3 Alert and oriented. Tansferred to table in Supine position. 13:56:26 Warm blankets applied, and orquidea hugger turned on for patient comfort. 13:56:27 Correct patient and procedure confirmed by team. 13:56:28 Signed procedure consent form obtained from patient. 13:56:29 ECG and BP/O2 sat monitors applied to patient. 13:56:41 H&P Date Dictated: 05/09/2017 Within 30 days and on chart., H&P Addendum completed by physician on day of procedure. (MUST COMPLETE FOR ALL OUTPATIENTS). 13:56:43 Pre-procedure instructions explained to patient. 13:56:43 Pre-op teaching completed and patient verbalized understanding. 13:56:45 Family in waiting room. 13:56:47 Patient NPO since Midnight. 13:57:06 Patient allergic to Other allergyiodine 13:57:09 Is the patient allergic to Iodine/contrast media? Yes. 13:57:10 Was the patient premedicated? Yes 13:57:11 Is patient on blood thinner?Yes 13:57:17 ACC The patient was administered the following blood thiners within the last 24 hours: ACCPlavix 13:57:33 Patient diabetic? No. 13:57:35 Previous problem with sedation/anesthesia? No ? 13:57:37 Snore? Yes 13:57:37 Sleep apnea? No 13:57:38 Deviated septum? No 13:57:39 Opens mouth fully? Yes 13:57:40 Sticks out tongue? Yes 13:57:42 Airway obstruction? No ? 13:57:48 Dentures? Yes in tight 14:07:38 Vital chart was started 14:16:52 Baseline sample Acquired. 14:16:58 Rhythm: sinus rhythm 14:17:00 Full Disclosure recording started 14:17:10 Modified Mingo's test Ulnar < 7 seconds 14:17:11 Patient pain scale 0/10 ?. 14:17:16 IV patent on arrival in left wrist with 0.9% NaCl at [facility] 14:18:26 Lab Result : BUN 17 mg/dl 14:18: Lab Result : Hemoglobin 15.3 g/dl 14:18: Lab Result : Creatinine 1.5 mg/dl 14:18: Lab Result : Hematocrit 43.8 % 14:18:29 Lab results completed and on chart. 14:18:31 Right Radial & Right Groin area was prepped with chlora-prep and draped in sterile fashion 14:18:31 Alarms reviewed by R. N. 14:18:32 Sharps counted by scrub and verified by R.N. 14:18:34 Use device set Radial Dx or PCI 14:18:36 ACIST Syringe (67872) opened to sterile field. 14:18:36 Medline Cath Pack ([id number]) opened to sterile field. 14:18:37 Bag Decanter (2002S) opened to sterile field. 14:18:38 Tegaderm 4 x 4 (1626W) opened to sterile field. 14:18:39 ACIST Manifold (44934) opened to sterile field. 14:18:40 ACIST Hand Control (96225) opened to sterile field. 14:18:41 MBrace Wrist Support ([id number]) opened to sterile field. 14:18:44 SHEATH 6FR Slender ([id number]) opened to sterile field. 14:18:44 DIAGNOSTIC WIRE .035 260cm J wire (439712) opened to sterile field. 14:20:43 Physician paged 14:23:25 Oxygen 2 l/min NC was administered by Terrie Wallis RN; used for procedure; 14:23:33 Lidocaine 2% 20ml vial added to field was administered by Stone Beltre MD; for local anesthetic; 14:23:39 Heparin Flush Bag (1000units/500ml NS) 2 bags added to field was administered by Stone Beltre MD; used for procedure; 14::51 0.9% NaCl 100 ml/hr I.V. was administered by Terrie Wallis RN; used for procedure; 14:: Physician arrived 14:: --------ALL STOP TIME OUT------ 14:24:18 Final Timeout: patient, procedure, and site verified with staff and physician. All members of the team are in agreement. 14::19 Right Radial & Right Groin site verified by team. 14:: Physical assessment completed. ASA score P 2 - A patient with mild systemic disease as per Stone Beltre MD. ::24 Sedation plan: IV Moderate Sedation Medication:Versed, Fentanyl 14:: Fentanyl 50 mcg I.V. was administered by Terrie Wallis RN; for sedation; 14::56 Zero performed for pressure channel P1 14::57 Versed 2 mg I.V. was administered by Terrie Wallis RN; for sedation; 14::53 Procedure started. 14::57 Local anesthetic to right radial artery with Lidocaine 2% by Stone Beltre MD.INITIAL ACCESS ONLY 14:27:02 A 6 Fr Short sheath was inserted into the Right Radial artery 14:27:06 A DIAGNOSTIC [place] 110cm 5 Fr catheter (615804) was advanced over the wire and used for Procedure. 14:28:10 Radial Cocktail (Verapomil 2mg/Nitro 400mcg/Heparin 1500units) 1 syringe I.A. was administered by Terrie Wallis RN; for vasodilation; 14::34 LV gram done using CHEW 14::36 Injector settings: Ml/sec: 5, Volume: 15, 14:28:52 Versed 1 mg I.V. was administered by Terrie Wallis RN; for sedation; ::56 Fentanyl 50 mcg I.V. was administered by Terrie Wallis RN; for sedation; 14:29:01 EF : 60 % 14:29:14 LCA angiography performed. 14:30:06 INFLATOR Merit BasixCompak (XY4888) opened to sterile field. 14:30:33 RCA angiography performed. 14:31:02 GUIDE 6FR XBLAD 3.5 catheter ([id number]) opened to sterile field. 14:31:54 Heparin Bolus 4000 units I.V. was administered by Terrie Wallis RN; for anticoagulation; verified with dr beltre 14:33:08 Versed 2 mg I.V. was administered by Terrie Wallis RN; for sedation; 14:33:12 Fentanyl 50 mcg I.V. was administered by Terrie Wallis RN; for sedation; 14:35:29 Catheter removed. 14:35:39 6 Fr xblad 3.5 guide catheter was inserted over the wire 14:35:47 WHISPER 300cm guide wire ([id number]) opened to sterile field. 14:36:55 whisper wire would not advance through stent catheter. 14:37:03 CHOICE PT Extra Support J 300cm guide wire ([id number]) opened to sterile field. 14:39:38 Wire advanced across lesion. 14:40:03 Inflation Number: 1 A CAMRON OTW 2.25 x 12 stent ([id number]) was prepped and advanced across the 1st Diag. The stent was deployed at 17 ABIEL for 0:10 (min:sec). 14:40:21 Inflation number: 2 The stent balloon was then re-inflated across the 1st Diag to 15 ABIEL for 0:10 (min:sec). 14:40:24 Versed 1 mg I.V. was administered by Terrie Wallis RN; for sedation; 14:40:39 Fentanyl 50 mcg I.V. was administered by Terrie Wallis RN; for sedation; 14:40:57 Wire redirected to LAD. 14:41:15 Inflation number: 1 The stent balloon was then re-inflated across the Prox LAD to 15 ABIEL for 0:10 (min:sec). 14:41:47 Wire redirected to RAMUS. 14:44:11 Wire advanced across lesion. 14:44:41 Inflation number: 1 The stent balloon was then re-inflated across the Ramus to 15 ABIEL for 0:10 (min:sec). 14:44:43 Stent catheter was removed intact over wire. 14:44:44 Wire removed. 14:44:44 Guide catheter removed. 14:45:21 TR BAND Standard ([id number]) opened to sterile field. 14:45:39 Procedure ended.(Physican Out) 14:45:43 Sheath removed intact; hemostasis achieved with Mechanical Compression to the Right Radial artery. 14:45:54 Fluoroscopy time 08.30 minutes. 14:46:00 Fluoroscopy dose: 377.91 mGy 14:46:00 Flurop Dose total: 377.91 14:46:04 Contrast amount:Isovue 300 152ml. 14:46:05 Sharps counted by scrub and verified by R.N. 14:46:07 Insertion/operative site no bleeding no hematoma. 14:46:17 Post right radial artery:stable, soft, clean and dry 14:46:18 Post Procedure Pulses reassessed and unchanged 14:46:21 Post-procedure physical assessment completed. ASA score P 2 - A patient with mild systemic disease as per Stone Beltre MD. 14:46:23 Post procedure rhythm: unchanged. 14:46:25 Estimated blood loss: 10 ml 14:46:27 Post procedure instruction explained to patient.Patient verbalizes understanding. 14:46:27 Patient needs reinforcement of post procedure teaching. 14:47:28 Procedure type changed to Cath procedure, Diagnostic procedure, LHC, LHC w/Coronaries, Sedation Charges, Moderate Sedation up to 15 minutes, PCI procedure, Coronary Stent, Coronary Stent Initial, PTCA, PTCA Additional x2 14:48:15 Procedure and supply charges have been captured, reviewed, submitted and are correct. 14:48:17 Procedure Complication : No complications 14:48:20 Vital chart was stopped 14:48:20 See physician's report for complete and final results. 14:48:21 Report given to Pre/Post Procedure Room. 14:48:22 Patient transfered to Pre/Post Procedure Room with Stretcher. 14:48:24 Procedure ended. 14:48:24 Full Disclosure recording stopped 14:48:33 TR band inflated with 12cc of air. 14:48:38 End room use (Document Last) Intervention Summary Intervention Notes Time ActionType Lesion and Equipment Action# Pressure Duration Attributes Used 14:40:03 Place stent 1st Diag CAMRON OTW 2.25 1 17 00:10 x 12 stent ([id number]) 14:40:21 Reinflate 1st Diag CAMRON OTW 2.25 2 15 00:10 stent x 12 stent balloon ([id number]) 14:41:15 Reinflate Prox LAD CAMRON OTW 2.25 1 15 00:10 stent x 12 stent balloon ([id number]) 14:44:41 Reinflate Ramus CAMRON OTW 2.25 1 15 00:10 stent x 12 stent balloon ([id number]) Device Usage Item Name Manufacture Quantity Catalog Number Hospital Part Current Min imal Lot# / Charge Number Stock Stock Serial# Code ACIST Syringe Acist 1 47759 071729 462285 450668 20 (40037) Medical Systems Inc Medline Cath Cardinal 1 [id number] 691119 21772 780318 5 Pack Health ([id number]) Bag Decanter Microtek 1 2001S 391528 35679 350954 5 (2001S) Medical Inc. Tegaderm 4 x 3M 1 1626W 858340 449353 317846 5 4 (1626W) ACIST Acist 1 05521 879252 423142 284364 5 Manifold Medical (49107) Systems Inc ACIST Hand Acist 1 10005 821424 752144 079525 5 Control Medical (34593) Systems Inc MBrace Wrist Advanced 1 140-0250-00 940717 51692 618436 5 Support Vascular ([id number]) Dynamics SHEATH 6FR Terumo 1 [id number] 086744 206819 052754 40 Slender ([id number]) DIAGNOSTIC [facility] 1 196920 803131 214726 984771 30 WIRE .035 260cm J wire (320434) DIAGNOSTIC Terumo 1 40-3653 164098 549208 533674 5 [place] 110cm 5 Fr catheter (838560) INFLATOR [facility] 1 HW7887 014423 086584 538996 15 [facility] BasixCompak (KO6727) GUIDE 6FR Cardinal 1 [id number] 291477 072683 382462 10 XBLAD 3.5 Health catheter (45754221) WHISPER 300cm Marquez 1 [id number] 240667 082073 603507 5 guide wire Vascular (6430772NE) CHOICE PT [place] 1 [id number] 405275 20180901 391840 5 Extra Support Scientific J 300cm guide wire (8911948N7) CAMRON OTW 2.25 Medtronic 1 [id number] 419316 53932 003414 5 [id number] x 12 stent ([id number]) TR BAND Terumo 1 [id number] 453360 028226 896860 40 Standard ([id number]) Signature Audit Filley Stage Time Signature Unsigned Intra-Procedure 05/19/2017 Bill Pearce 2:50:59 PM RT(R) Signatures Monitor : Bill Pearce RT Signature : Date : Time : [address] [place] [address]
[~2017-05-19 08:48] MED LIST changes: +PROSCAR5 MG PO; +TEMAZEPAM30 MG PO
[2017-05-19 09:55] VITALS: BP 202/108; Ht 172.7 cm; Wt 86.8 kg
[2017-05-19 10:02] LABS: BASOPHILS 0.1 % (0-2); EOSINOPHILS 0.3 % (0-7); HEMATOCRIT 43.8 % (42.0-54.0); HEMOGLOBIN 15.3 g/dL (13.5-17.5); IMMATURE GRANULOCYTES 0.1 % (0-5); MCH 35.3 pg (26.0-34.0); MCHC 34.9 g/dL (31.0-37.0); MCV 100.9 fL (80.0-100.0); MEAN PLATELET VOLUME 9.8 fL (7.4-10.4); MONOCYTES 4.9 % (2-11); NEUTROPHILS 80.6 % (40-80); PLATELET COUNT 138 10x3/uL (130-400); RBC 4.34 10x6/uL (4.20-6.10); RDW 12.9 % (11.5-14.5); WBC 7.1 10x3/uL (4.8-10.8)
[2017-05-19 10:13] LABS: ANION GAP 13.7 mmol/L (8-16); CALCIUM 9.1 mg/dL (8.5-10.1); CARBON DIOXIDE 26.5 mmol/L (21.0-32.0); CREATININE - SERUM 1.5 mg/dL (0.6-1.3); POTASSIUM - SERUM 4.2 mmol/L (3.5-5.1)
== END | disposition home or self-care (01) ==
LOC: D.CATH 08:48
PROVIDERS: Internal Medicine Interventional Cardiology
DX: I25.119 Atherosclerotic heart disease of native coronary artery with unspecified angina pectoris (principal); R94.30 Abnormal result of cardiovascular function study, unspecified; I10 Essential (primary) hypertension; Z01.812 Encounter for preprocedural laboratory examination
CPT/HCPCS: 92920; 93458; C9600

== ENCOUNTER → 2018-09-28 11:48 | Outpatient (CLI) | payer MEDICARE, BC ==
[2017-05-19 09:55] VITALS: BMI 29.1
== END | disposition home or self-care (01) ==
LOC: D.US 11:48
PROVIDERS: ATTEND Internal Medicine Cardiovascular Disease
DX: I65.23 Occlusion and stenosis of bilateral carotid arteries (principal); I71.4 Abdominal aortic aneurysm, without rupture

== ENCOUNTER 2018-10-31 10:28 | Observation (INO) | payer MEDICARE, BC ==
[~2018-10-31] VITALS: Ht 172.7 cm; Wt 81.9 kg
[~2018-10-31 10:28] MED LIST changes: -CO Q-10100 MG; +CO Q-10100 MG PO
[2018-10-31 10:55] VITALS: BP 168/96
[2018-10-31 11:19] LABS: BASOPHILS 0.5 % (0-2); EOSINOPHILS 9.2 % (0-7); HEMATOCRIT 42.3 % (42.0-54.0); HEMOGLOBIN 14.7 g/dL (13.5-17.5); IMMATURE GRANULOCYTES 0.4 % (0-5); LYMPHOCYTES 18.7 % (15-50); MCH 35.6 pg (26.0-34.0); MCHC 34.8 g/dL (31.0-37.0); MCV 102.4 fL (80.0-100.0); MEAN PLATELET VOLUME 10.2 fL (7.4-10.4); MONOCYTES 11.4 % (2-11); NEUTROPHILS 59.8 % (40-80); RBC 4.13 10x6/uL (4.20-6.10); RDW 13.5 % (11.5-14.5); WBC 8.4 10x3/uL (4.8-10.8)
[2018-10-31 11:20] LABS: PLATELET COUNT 105 10x3/uL (130-400)
[2018-10-31 11:28] LABS: APTT 26.6 SECONDS (22.8-39.4); INR 1.06 (0.85-1.17); PROTIME 13.3 SECONDS (11.6-15.0)
[2018-10-31 11:32] VITALS: BP 145/86
[2018-10-31 11:33] VITALS: BP 162/88
[2018-10-31 11:36] LABS: ALKALINE PHOSPHATASE 195 U/L (46-116); ALT (SGPT) 20 U/L (10-68); BILIRUBIN - TOTAL 0.72 mg/dL (0.2-1.3); CALC OSMOLALITY 286 mosm/kg (275-300); CALCIUM 9.1 mg/dL (8.5-10.1); CARBON DIOXIDE 29.3 mmol/L (21.0-32.0); CHLORIDE - SERUM 105 mmol/L (98-107); CREATININE - SERUM 1.3 mg/dL (0.6-1.3); GLUCOSE 94 mg/dL (74-106); POTASSIUM - SERUM 4.3 mmol/L (3.5-5.1); PROTEIN - SERUM 6.8 g/dL (6.4-8.2); SODIUM 144 mmol/L (136-145); UREA NITROGEN 13 mg/dL (7-18); eGFR NON AFRICAN AMERICAN 57 mL/min (90-120)
--- NOTE | 2018-10-31 11:39 | NUR ---
DR. BAUMANN AT BEDSIDE.
[2018-10-31 11:40] LABS: MAGNESIUM - SERUM 1.5 mg/dL (1.8-2.4); TROPONIN-I < 0.017 ng/mL (0.000-0.060)
[2018-10-31 13:27] VITALS: BP 145/86; BMI 27.4
[2018-10-31 13:31] VITALS: Ht 172.7 cm; Wt 81.9 kg
--- NOTE | 2018-10-31 14:36 | NUR ---
NOTIFIED MARLENY TONY OF ELEVATED D-DIMER WITH NO NEW ORDERS RESERVED.
[2018-10-31 15:29] LABS: CKMB 1.5 U/L (0.0-3.6); CREATINE KINASE 77 UL (21-232)
[2018-10-31 15:30] LABS: TROPONIN-I < 0.017 ng/mL (0.000-0.060)
--- NOTE | 2018-10-31 19:45 | NUR ---
REPORT RECEIVED, WILL CONTINUE POC. PATIENT IS A/OX4 UP AD MARITO. LYING IN BED WATCHING TV. RR EVEN AND UNLABORED ON 2L O2 VIA NC. NO S/SX OF DISTRESS NOTED. PATIENT HAS IV TO RT FA, SL, PATENT, DRSG IS C/D/I. PATIENT DENIES NEEDS AT THIS TIME. CL IN REACH, BED LOCKED AND LOWERED. WILL CTM.
[2018-10-31 19:52] LABS: CKMB 1.2 U/L (0.0-3.6); CREATINE KINASE 59 UL (21-232); TROPONIN-I < 0.017 ng/mL (0.000-0.060)
[2018-10-31 20:00] VITALS: BP 175/82
--- NOTE | 2018-10-31 22:00 | NUR ---
PSATOR CALLED IN SOTALOL 80MG ON TIME DOSE. LENS MATCHER CALLED TO PULL MED. WILL CTM.
[2018-11-01] VITALS: BP 144/77
--- NOTE | 2018-11-01 00:07 | NUR ---
CALLED TRUCK RENTAL MANAGER ABOUT PULLING SOTALOL, SHE SAID SHE'D BE HERE SHORTLY.
[2018-11-01 02:14] LABS: BASOPHILS 0.3 % (0-2); EOSINOPHILS 14.8 % (0-7); HEMATOCRIT 37.9 % (42.0-54.0); HEMOGLOBIN 12.8 g/dL (13.5-17.5); IMMATURE GRANULOCYTES 0.2 % (0-5); LYMPHOCYTES 23.2 % (15-50); MCH 34.6 pg (26.0-34.0); MCHC 33.8 g/dL (31.0-37.0); MCV 102.4 fL (80.0-100.0); MONOCYTES 10.9 % (2-11); NEUTROPHILS 50.6 % (40-80); PLATELET COUNT 114 10x3/uL (130-400); RDW 13.5 % (11.5-14.5); WBC 8.8 10x3/uL (4.8-10.8)
[2018-11-01 02:39] LABS: CALC OSMOLALITY 287 mosm/kg (275-300); CALCIUM 8.6 mg/dL (8.5-10.1); CARBON DIOXIDE 31.2 mmol/L (21.0-32.0); CHLORIDE - SERUM 106 mmol/L (98-107); CKMB 1.3 U/L (0.0-3.6); CREATINE KINASE 57 UL (21-232); CREATININE - SERUM 1.2 mg/dL (0.6-1.3); GLUCOSE 98 mg/dL (74-106); POTASSIUM - SERUM 3.8 mmol/L (3.5-5.1); SODIUM 144 mmol/L (136-145); TROPONIN-I 0.018 ng/mL (0.000-0.060); UREA NITROGEN 16 mg/dL (7-18); eGFR NON AFRICAN AMERICAN 63 mL/min (90-120)
[2018-11-01 04:00] VITALS: BP 129/73
--- NOTE | 2018-11-01 04:00 | NUR ---
I have reviewed this patient and I concur with the Shift Assessment completed by the Licensed Practical Nurse today this shift.
[2018-11-01] MEDS ORDERED: PREDNISONE20 MG PO (09:08)
[2018-11-01] MEDS ORDERED: NITRO-DUR0.2 MG TRANSDERM (09:09)
--- NOTE | 2018-11-01 12:19 | NUR ---
DISCHARGE INSTRUCTIONS REVIEWED WITH PT AND HIS WITH NO QUESTIONS. EXPLAINED ABOUT CHANGING NITRO PATCH AT SAME TIME TOMORROW AND VOICED UNDERSTANDING. SL REMOVED FROM RIGHT FOREARM WITHOUT DIFFICULTY. LEFT FLOOR VIA W/C WITH ALL PERSONAL BELONGINGS AND LEFT FACILITY VIA PRIVATE VEHICLE WITH AND DAUGHTER.
== END 2018-11-01 12:26 | disposition home or self-care (01) ==
LOC: D.ER 10:28 → OBSVTIME 12:00 → D.M2 12:00
PROVIDERS: Family Medicine; ADMIT Internal Medicine Nephrology; ATTEND Internal Medicine Nephrology
DX: I25.110 Atherosclerotic heart disease of native coronary artery with unstable angina pectoris (principal); D75.89 Other specified diseases of blood and blood-forming organs; I35.1 Nonrheumatic aortic (valve) insufficiency; E83.42 Hypomagnesemia; I10 Essential (primary) hypertension; E78.5 Hyperlipidemia, unspecified; I73.9 Peripheral vascular disease, unspecified

== ENCOUNTER 2018-11-03 07:30 | Outpatient (CLI) | payer MEDICARE, BC ==
[~2018-11-03] VITALS: Ht 172.7 cm; Wt 81.8 kg
--- NOTE | ~2018-11-03 | HEMODYNAMI ---
PATIENT:kevin correa MEDICAL RECORD: [id number] : 41 LOCATION:[facility] ADMISSION DATE: 11/03/18 Generatedon:11/03/20189:39 Patient name: kevin correa Patient #: [id number] SSN: [id number] : 1945 Date of study: 11/03/2018 Page: Of Hemodynamic Procedure Report Patient Data Patient Demographics Procedure consent was obtained First Name: kevin Gender: Male Last Name: sunny : 1945 [facility] Initial: R Age: 73 year(s) Patient #: [id number] Race: SSN: [id number] Additional ID: [id number] Contact details Address: [address] [place] [address] State: [place] City: [place] Zip code: [address] Past Medical History Allergies Allergen Reaction Date Comments Reported Iodine 10/19/2015 Other allergy 03/25/2016 Iodine Iodine Skin ->swelling 03/29/2016 Other allergy 05/19/2017 iodine Admission Admission Data Admission Date: 11/03/2018 Admission Time: 7:30 Arrival Date: 11/03/2018 Arrival Time: 7:30 Admit Source: Other Insurance Payor: Medicare Lab Results Lab Result Date: 11/03/2018 Lab Result Time: 0:00 Biochemistry Name Units Result Min Max BUN mg/dl 28 --(----)-* 7 18 Creatinine mg/dl 1.5 --(----)-* 0.6 1.3 eGFR ml/min 48 *-(----)-- 90 120 NONAFRICAN CBC Name Units Result Min Max Hemoglobin g/dl 14.2 --(*---)-- 13.5 17.5 Procedure Procedure Types Cath Procedure Diagnostic Procedure LHC LHC w/Coronaries Sedation Charges Moderate Sedation up to 30 minutes Procedure Description Procedure Date Procedure Date: 11/03/2018 Procedure Start Time: 9:09 Procedure End Time: 9:37 Procedure Staff Name Function Eliceo Madrigal MD Performing Physician Ying Romo RT Scrub Nelda Meraz RN Nurse Kevin Steele RT Monitor Procedure Data Cath Procedure Fluoroscopy Diagnostic fluoroscopy Total fluoroscopy Time: 3.8 time: 3.8 min min Diagnostic fluoroscopy Total fluoroscopy dose: dose: 01858 mGy 35653 mGy Contrast Material Contrast Material Type Amount (ml) Isovue 300 78 Entry Location Entry Primary Successful Side Size Upsize Upsize Entry Closure Succes sful Closure Location (Fr) 1 (Fr) 2 (Fr) Remarks Device Remarks Femoral Right 5 Fr Exoseal artery Estimated blood loss: 10 ml Diagnostic catheters Device Type Used For End Catheter Placement MULTIPACK JL 4.0 5Fr Procedure catheter MULTIPACK 3DRC 5Fr Procedure catheter DIAGNOSTIC AL1 5Fr Procedure catheter ([id number]) MULTIPACK Pigtail 5 Fr Procedure catheter Procedure Complications No complications Procedure Medications Medication Administration Route Dosage 0.9% NaCl I.V. 100 ml/hr Oxygen etCO2 Nasal cannula 2 l/min Lidocaine 2% added to field 20 Heparin Flush Bag added to field 2 bags (1000units/500ml NS) Radial Cocktail added to field 1 syringe (Verapamil 2mg/Nitro 400mcg/Heparin 1500units) Versed I.V. 2 mg Fentanyl I.V. 100 mcg Hemodynamics Rest HGB: 14.2 (g/dl) Heart Rate: 57 (bpm) Pressure Samples Time Site Value (mmHg) Purpose Heart Use Rate(bpm) 9:29 LV 147/-10,16 Snapshot 78 9:30 AO 149/67(102) Pullback 74 9:30 LV 149/25,15 Pullback 74 Gradients Valve Time Site 1 Site 2 Mean SEP/DFP Peak To Heart Use (mmHg) (sec/min) Peak Rate (mmHg) (bpm) Aortic 9:30 LV AO 4 24 0 74 149/25,15 149/67(102) Calculations Valve P-P Mean Valve Index Valve Source Name Gradient Area Flow (cm2) Aortic 0 4 0 4 Snapshots Pre Cath Intra NCS Post Cath Vital Signs Time Heart Resp SPO2 etCO2 NIBP (mmHg) Rhythm Pain Sedation Rate (ipm) (%) (mmHg) Status Level (bpm) 8:59:49 58 12 99 35.3 160/89(108) SB 0 (11) 10(A) , No pain 9:04:10 57 10 100 37.5 147/85(125) SB 0 (11) 10(A) , No pain 9:08:25 56 16 99 39.8 140/83(121) SB 0 (11) 9(A) , No pain 9:12:43 55 16 99 35.3 122/80(112) SB 0 (11) 9(A) , No pain 9:16:53 58 12 98 40.6 139/82(110) SB 0 (11) 9(A) , No pain 9:21:07 54 14 99 41.3 137/91(102) SB 0 (11) 9(A) , No pain 9:25:17 56 14 99 42.8 143/80(131) SB 0 (11) 9(A) , No pain 9:29:35 57 16 99 30.8 124/78(109) SB 0 (11) 9(A) , No pain 9:34:34 73 14 100 40.5 Measuring NSR 0 (11) 10(A) , No pain 9:34:44 74 16 98 40.5 142/88(124) NSR 0 (11) 10(A) , No pain Medications Time Medication Route Dose Verified Delivered Reason Notes Ef fectiveness by by 8:56:29 0.9% NaCl I.V. 100 Eliceo Nelda used for ml/hr Rohan Meraz forensic psychologist 8:56:35 Oxygen etCO2 2 l/min Eliceo Nelda used for Nasal Rohan Meraz procedure cannula RN 8:56:40 Lidocaine 2% added 20ml Eliceo Eliceo for local to vial Rohan Madrigal MD anesthetic field 8:56:44 Heparin Flush added 2 bags Eliceo Eliceo used for Bag to Rohan Madrigal MD procedure (1000units/500ml field NS) 8:56:49 Radial Cocktail added 1 Eliceo Eliceo used for (Verapamil to syringe Rohan Madrigal MD procedure 2mg/Nitro field 400mcg/Heparin 1500units) 9:04:31 Versed I.V. 2 mg Eliceo Nelda for Rohan Meraz sedation RN 9:04:40 Fentanyl I.V. 100 mcg Eliceo Nelda for Rohan Meraz sedation technical spec Log Time Note 8:16:09 Informed consent obtained and on chart 8:16:15 Diagnostic Cath Status : Elective 8:19:07 Admit Source: Other 8:19:10 Arrival Date: 11/03/2018 7:30:00 AM 8:19:24 Insurance Payor : Medicare 8:35:44 Ying Demetrius (R) sent for patient. Start room use. 8:37:32 Lab Result : BUN 28 mg/dl 8:37:32 Lab Result : Creatinine 1.5 mg/dl 8:37:32 Lab Result : eGFR NONAFRICAN 48 ml/min 8:37:32 Lab Result : Hemoglobin 14.2 g/dl 8:37:41 3a) 45-59 Moderately reduced kidney function. 8:37:53 Maximum allowable contrast dose (3.7 X eGFR X 0.75)133 ml. 8:47:54 Time tracking: Regular hours (M-F 7:00 - 5:00) 8:47:58 Plan of Care:Hemodynamics will remain stable., Cardiac rhythm will remain stable., Comfort level will be maintained., Respiratory function will remain adequate., Patient/ family verbilizes understanding of procedure., Procedure tolerated without complication., Recovers from procedure without complications.. 8:48:04 Patient received from Pre/Post Procedure Room to CCL 2 Alert and oriented. Tansferred to table in Supine position. 8:48:05 Warm blankets applied, and orquidea hugger turned on for patient comfort. 8:48:05 Correct patient and procedure confirmed by team. 8:48:06 ECG and BP/O2 sat monitors applied to patient. 8:54:17 Vital chart was started 8:56:29 0.9% NaCl 100 ml/hr I.V. was administered by Nelda Meraz RN; used for procedure; 8:56:35 Oxygen 2 l/min etCO2 Nasal cannula was administered by Nelda Meraz RN; used for procedure; 8:56:40 Lidocaine 2% 20ml vial added to field was administered by Eliceo Madrigal MD; for local anesthetic; 8:56:44 Heparin Flush Bag (1000units/500ml NS) 2 bags added to field was administered by Eliceo Madrigal MD; used for procedure; 8:56:49 Radial Cocktail (Verapamil 2mg/Nitro 400mcg/Heparin 1500units) 1 syringe added to field was administered by Eliceo Madrigal MD; used for procedure; 8:57:34 Rhythm: sinus rhythm 8:57:35 Full Disclosure recording started 8:58:11 H&P Date Dictated: 10/31/2018 Within 30 days and on chart., H&P Addendum completed by physician on day of procedure. (MUST COMPLETE FOR ALL OUTPATIENTS). 8:58:12 Pre-procedure instructions explained to patient. 8:58:12 Pre-op teaching completed and patient verbalized understanding. 8:58:13 Family in patients room. 8:58:15 Patient NPO since Midnight. 8:58:18 Is the patient allergic to Iodine/contrast media? Yes. 8:58:19 Was the patient premedicated? Yes 8:58:20 Is patient on blood thinner?No 8:58:23 ACC The patient was administered the following blood thiners within the last 24 hours: None 8:58:27 Patient diabetic? No. 8:58:29 Previous problem with sedation/anesthesia? No ? 8:58:30 Snore? Yes 8:58:32 Sleep apnea? No 8:58:33 Deviated septum? No 8:58:33 Opens mouth fully? Yes 8:58:35 Sticks out tongue? No 8:58:39 Airway obstruction? No ? 8:58:41 Dentures? Yes IN 8:58:45 Pre procedure: right dorsailis pedis pulse 1+ Palpable, but thready & weak; easily obliterated 8:58:46 Modified Mingo's test Ulnar < 7 seconds 8:58:49 Patient pain scale 0/10 ?. 8:58:55 IV patent on arrival in left forearm with 0.9% NaCl at KVO. 8:58:56 Lab results completed and on chart. 8:59:00 Right Radial & Right Groin area was prepped with chlora-prep and draped in sterile fashion 8:59:01 Alarms reviewed by R. N. 8:59:01 Sharps counted by scrub and verified by R.N. 8:59:20 Use device set Radial Dx or PCI 8:59:22 Tegaderm 4 x 4 (1626W) opened to sterile field. 8:59:23 ACIST Manifold (85090) opened to sterile field. 8:59:23 ACIST Hand Control (32175) opened to sterile field. 8:59:40 ACIST Syringe (63685) opened to sterile field. 8:59:41 Medline Cath Pack ([id number]) opened to sterile field. 8:59:42 Bag Decanter () opened to sterile field. 8:59:50 MBrace Wrist Support ([id number]) opened to sterile field. 8:59:50 NEEDLE Cook 21G 4cm Radial ([id number]) opened to sterile field. 8:59:53 EMERALD Guide Wire (762-024) opened to sterile field. 9:03:41 --------ALL STOP TIME OUT------ 9:03:41 Final Timeout: patient, procedure, and site verified with staff and physician. All members of the team are in agreement. 9:03:43 Right Radial & Right Groin site verified by team. 9:03:52 Fire Safety Assessment: A--An alcohol-based skin anteseptic being used preoperatively., C--Open oxygen or nitrous oxide is being used., D--An ESU, laser, or fiber-optic light is being used. 9:04:14 Physical assessment completed. ASA score P 2 - A patient with mild systemic disease as per Eliceo Madrigal MD. 9:04:31 Versed 2 mg I.V. was administered by Nelda Meraz RN; for sedation; 9:04:40 Fentanyl 100 mcg I.V. was administered by Nelda Meraz RN; for sedation; 9:09:20 Procedure started. 9:09:47 Local anesthetic to right radial artery with Lidocaine 2% by Eliceo Madrigal MD.INITIAL ACCESS ONLY 9:13:29 Baseline sample Acquired. 9:17:35 Unable to gain radial access, moving to Femoral approach. 9:18:37 Use device set Multipack Set 9:18:40 DIAGNOSTIC Multipack 5Fr catheter set ([id number]) opened to sterile field. 9:18:49 SHEATH 5FR [place] (MGO909) opened to sterile field. 9:19:00 Local anesthetic to right femoral artery with Lidocaine 2% by Eliceo Madrigal MD.ADDITIONAL ACCESS 9:19:17 Zero performed for pressure channel P1 9:19:21 Zero performed for pressure channel P1 9:20:07 A 5 Fr sheath was inserted into the Right Femoral artery 9:20:13 A MULTIPACK JL 4.0 5Fr catheter was advanced over the wire and used for Procedure. 9:21:03 LCA angiography performed. 9:21:53 Catheter exchanged over wire. 9:21:59 A MULTIPACK 3DRC 5Fr catheter was advanced over the wire and used for Procedure. 9:24:19 Catheter removed. unable to cannulate vessel. 9:24:48 A DIAGNOSTIC AL1 5Fr catheter ([id number]) was advanced over the wire and used for Procedure. 9:28:55 RCA angiography performed. 9:28:57 Catheter exchanged over wire. 9:29:01 A MULTIPACK Pigtail 5 Fr catheter was advanced over the wire and used for Procedure. 9:29:49 LV angiography performed. 9:29:50 LV gram done using CHEW 9:30:51 EF : 50 % 9:30:52 LV hemodynamics recorded. 9:30:55 Injector settings: Ml/sec: 10, Volume: 20, 9:31:02 Catheter removed. 9:31:17 EXOSEAL 5Fr (EX500) opened to sterile field. 9:31:44 Sheath removed intact; hemostasis achieved with Exoseal to the Right Femoral artery. 9:31:47 Procedure ended.(Physican Out) 9:33:22 Fluoroscopy time 03.80 minutes. 9:33:26 Flurop Dose total: 92209 9:33:26 Fluoroscopy dose: 34796 mGy 9:33:32 Dose Area Product 514 mGy/cm. 9:33:38 Contrast amount:Isovue 300 78ml. 9:33:43 Maximum allowable dose exceeded? No. 9:33:44 Sharps counted by scrub and verified by R.N. 9:34:08 Insertion/operative site no bleeding no hematoma. 9:34:11 Post-op/insertion site Right Femoral artery dressed using a 4 x 4 and Tegaderm. 9:34:12 Post Procedure Pulses reassessed and unchanged 9:34:14 Post-procedure physical assessment completed. ASA score P 2 - A patient with mild systemic disease as per Eliceo Madrigal MD. 9:34:17 Post procedure rhythm: unchanged. 9:34:20 Estimated blood loss: 10 ml 9:34:21 Post procedure instruction explained to patient.Patient verbalizes understanding. 9:34:21 Patient needs reinforcement of post procedure teaching. 9:34:42 Procedure type changed to Cath procedure, Diagnostic procedure, LHC, LHC w/Coronaries, Sedation Charges, Moderate Sedation up to 30 minutes 9:36:37 Procedure and supply charges have been captured, reviewed, submitted and are correct. 9:36:39 Procedure Complication : No complications 9:37:20 Vital chart was stopped 9:37:21 See physician's report for complete and final results. 9:37:23 Report given to Pre/Post Procedure Room. 9:37:26 Patient transfered to Pre/Post Procedure Room with Bed. 9:37:28 Procedure ended. 9:37:28 Full Disclosure recording stopped 9:38:27 End room use (Document Last) Device Usage Item Name Manufacture Quantity Catalog Hospital Part Current Minimal Lot# / Number Charge Number Stock Stock Serial# Code Tegaderm 4 3M 1 1626W 409217 [id number] 216143 5 x 4 (1626W) ACIST Acist 1 38929 596750 806865 344547 5 Manifold Medical (76085) Systems Inc ACIST Hand Acist 1 93838 051058 766340 892334 5 Control Medical (21095) Systems Inc ACIST Acist 1 69319 387555 908478 128350 20 Syringe Medical (72241) Systems Inc Medline Medline 1 [id number] 568755 78003 357978 5 Cath Pack ([id number]) Bag Microtek 1 2001S 946415 20427 415785 5 Decanter Medical Inc. () MBrace Advanced 1 140-0250-00 362632 36266 327684 5 Wrist Vascular Support Dynamics ([id number]) NEEDLE Cook Cook Medical 1 X06781 006270 702292 790368 5 21G 4cm Radial (M95559) EMERALD Cardinal 1 502-455 261182 937498 185764 5 Guide Wire Health (502-455) DIAGNOSTIC Cardinal 1 HS1500 479629 04520 974992 30 Multipack Health 5Fr catheter set (TU9997) SHEATH 5FR Terumo 1 BIN188 965104 686250 991374 5 [place] (LOG294) MULTIPACK Cardinal 1 720535 5 JL 4.0 5Fr Health catheter MULTIPACK Cardinal 1 054425 5 3DRC 5Fr Health catheter DIAGNOSTIC Cardinal 1 [id number] 329253 002774 853444 15 AL1 5Fr Health catheter ([id number]) MULTIPACK Cardinal 1 557487 5 Pigtail 5 Health Fr catheter EXOSEAL 5Fr Cardinal 1 EX500 504208 913833 582096 10 (EX500) Health Signature Audit Lillian Stage Time Signature Unsigned Intra-Procedure 11/03/2018 Kevin Steele 9:39:30 AM RT(R) Signatures Performing Physician : Signature : Eliceo Madrigal MD Date : Time : Nurse : Nelda Meraz RN Signature : Date : Time : Monitor : Kevin Steele RT Signature : Date : Time : [place] [address] [place] [address]
[~2018-11-03 07:30] MED LIST changes: +NITRO-DUR0.2 MG TRANSDERM
[2018-11-03 08:00] VITALS: BP 165/83; Ht 172.7 cm; Wt 81.8 kg
[2018-11-03 08:21] LABS: HEMATOCRIT 40.8 % (42.0-54.0); HEMOGLOBIN 14.2 g/dL (13.5-17.5); MCH 35.1 pg (26.0-34.0); MCHC 34.8 g/dL (31.0-37.0); MEAN PLATELET VOLUME 9.9 fL (7.4-10.4); PLATELET COUNT 150 10x3/uL (130-400); RBC 4.04 10x6/uL (4.20-6.10); RDW 13.3 % (11.5-14.5); WBC 24.4 10x3/uL (4.8-10.8)
[2018-11-03 08:34] LABS: ANION GAP 12.7 mmol/L (8-16); CALCIUM 9.4 mg/dL (8.5-10.1); CARBON DIOXIDE 29.3 mmol/L (21.0-32.0); CREATININE - SERUM 1.5 mg/dL (0.6-1.3)
[2018-11-03 08:42] LABS: CHOL - HDL RATIO 3.6 ratio (2.3-4.9); LDL-HDL RATIO 2.3 ratio (1.5-3.5)
[2018-11-03 08:54] LABS: EOSINOPHILS 2 % (0-7); LYMPHOCYTES 11 % (15-50); MONOCYTES 2 % (2-11); NEUTROPHILS 85 % (40-80); PLATELET ESTIMATE NORMAL
--- NOTE | 2018-11-03 09:58 | NUR ---
RECEIVED PT FROM FOOD TASTER. PT IS ALERT, DENIES ANY C/O CHEST PAIN OR NAUSEA. BANDAID CDI TO RIGHT WRIST. 5 FR EXOSEAL IS CDI TO RIGHT GROIN, AREA IS SOFT AND NONTENDER. PEDAL PULSES PALPABLE. NSR, RATE IS 60, BP IS 132/70. HOB IS FLAT, PT INSTRUCTED TO KEEP HEAD FLAT TO PILLOW AND RIGHT LEG STRAIGHT AND VERBALIZES UNDERSTANDING. BED LOCKED AND LOW, SIDE RAILS UP X2, FAMILY AT BEDSIDE. CALL LIGHT IN REACH.
--- NOTE | 2018-11-03 10:06 | NUR ---
PT DENIES ANY C/O. DRESSING IS CDI TO RIGHT GROIN, AREA IS SOFT AND NONTENDER. PEDAL PULSES PALPABLE. HOB IS FLAT. VSS. CHRISTEN PO FLUIDS WITH NO NAUSEA.
--- NOTE | 2018-11-03 10:30 | NUR ---
DRESSING CDI, VSS, PT ALERT AND DENIES ANY C/O. PEDAL PULSES PALPABLE.
--- NOTE | 2018-11-03 10:54 | NUR ---
PT ALERT, DENIES ANY C/O. DRESSING CDI TO RIGHT GROIN, AREA IS SOFT AND NONTENDER. PEDAL PULSES PALPABLE. SINUS ELI AT 51, BP IS 121/64. FAMILY AT BEDSIDE, PT DENIES ANY NEEDS AT THIS TIME.
--- NOTE | 2018-11-03 11:25 | NUR ---
HOB ELEVATED AND SANDWICH, PO FLUIDS SERVED. DRESSING IS CDI, PEDAL PULSES PALPABLE. PT IS ALERT AND DENIES ANY C/O. VSS.
--- NOTE | 2018-11-03 12:21 | NUR ---
1150 DRESSING CDI, PEDAL PULSES PALPABLE. PT HAS TOLERATED SANDWICH WITH NO C/O NAUSEA. DENIES ANY C/O CHEST PAIN. IV DC'D WITH CATH INTACT AND PT IS DRESSING FOR DC WITH ASSIST.
--- NOTE | 2018-11-03 12:22 | NUR ---
1215 PT HAS AMBULATED TO THE BATHROOM AND VOIDED QS. DENIES ANY C/O PAIN OR NAUSEA. DC INSTRUCTIONS REVIEWED WITH PT AND FAMILY WHO VERBALIZE UNDERSTANDING. 1220 PT ESCORTED TO PRIVATE AUTO VIA WC BY NURSE WITH SON DRIVING HIM HOME. PT HAS ALL BELONGINGS AND DC INSTRUCTIONS AT TIME OF DISCHARGE.
== END 2018-11-03 12:20 | disposition home or self-care (01) ==
LOC: D.CATH 07:30
PROVIDERS: ATTEND Internal Medicine Cardiovascular Disease
DX: I25.110 Atherosclerotic heart disease of native coronary artery with unstable angina pectoris (principal); T82.855A Stenosis of coronary artery stent, initial encounter; Z01.812 Encounter for preprocedural laboratory examination

== ENCOUNTER → 2019-10-05 09:59 | Outpatient (CLI) | payer MEDICARE, BC ==
[2018-11-03 08:00] VITALS: BMI 27.4
== END | disposition home or self-care (01) ==
LOC: D.US 09:59
PROVIDERS: ATTEND Internal Medicine Cardiovascular Disease
DX: Z86.79 Personal history of other diseases of the circulatory system (principal)